=== PATIENT | female | born 1990 | race Two or more races ===

== ENCOUNTER 2021-09-08 18:05 | Emergency (ER) | payer MEDICAID, SELFPAY ==
[2021-09-08 18:17] VITALS: BP 130/86; PULSE 115; RESP 16; TEMP 36.6; O2SAT 98
--- NOTE | 2021-09-08 18:21 | ED_ITS ---
HPI - General Adult General: Chief complaint: General Medical Stated complaint: out of medication Time Seen by Provider: 09/08/21 18:21 History of Present Illness: 30-year-old female comes in today with complaints of depression. Patient has a history of bipolar disorder in which she had been on an injectable form of Abilify for about 1 year. When patient found out she was she had stopped the injections and has been without any medication for the last 26 weeks. Patient reports that she had been doing well up until recently where she has been more tearful and depressed. Patient denied any homicidal or suicidal thoughts. Patient reports crying and headaches as her symptoms. Patient's previous behavioral health case manager was in [place] at [facility]. Patient's SUPERVISOR [employer] at this time is Dr. Frazier who is out of office until the . Patient denies any problems with . Patient reports a history of subclinical thyroid disorder. Patient has in the past been on Zoloft which caused verónica, lithium which can cause increased drowsiness, and Wellbutrin which increased suicidal thoughts. Review of Systems General: Reports: 10 or more systems reviewed and unremarkable except in HPI and below Psych: Reports: depression Physical Exam Const: COMMON NORMALS: alert HENMT: COMMON NORMALS: normocephalic HEAD & SCALP: normocephalic Neck/C-Spine: COMMON NORMALS: full ROM Resp: COMMON NORMALS: normal respiratory effort and clear to auscultation bilaterally AUSCULTATION: clear to auscultation bilaterally Cardio: COMMON NORMALS: regular rate and regular rhythm RATE: regular rate RHYTHM: regular rhythm Extremity: COMMON NORMALS: normal to inspection Neuro: SENSORIUM/ORIENTATION: Yes alert Skin: COMMON NORMALS: no rashes or lesions noted GENERAL SKIN EXAM: no rashes or lesions noted Course ED course: 1844, discussed patient with Dr. Valenzuela, on-call for Dr. Frazier, he feels that Lamictal may be the best choice for the patient at this time to treat her symptoms. He recommended that she follow-up with Dr. Frazier on the . Reviewed this with patient who agreed to plan. Patient was started on Lamictal 25 mg daily. Vital Signs: Vital signs: Vital Signs Temperature 97.8 F 09/08/21 18:17 Pulse Rate 110 H 09/08/21 18:39 Respiratory Rate 16 09/08/21 18:39 Blood Pressure 130/86 09/08/21 18:39 Pulse Oximetry 98 09/08/21 18:39 MDM - General Adult Medical Decision Making 30-year-old female comes in today with increased depression. Patient has a history of bipolar disorder with 1 episode of verónica. Patient is in her 26-week . On exam physically patient appears well. Patient denies any homicidal suicidal thoughts. Vital signs are normal. Differential diagnosis includes but not limited to bipolar disorder, major depressive disorder, worried well. Reviewed exam and patient with Dr. Valenzuela who recommended at this time we start patient on Lamictal 25 mg daily. Patient was given a 25 mg dose of Lamictal in the emergency department. Patient appeared cooperative without any episodes of tearfulness. Reviewed recommendations for follow-up and return as needed to the ER. Patient stated understanding. Discharge Plan Discharge Patient Disposition: Home Clinical Impression: Bipolar 1 disorder, depressed Condition: Stable Prescriptions: New Lamictal 25 mg tablet 25 mg PO DAILY Qty: 30 0RF Discharge Orders: Discharge ED (Routine); Ordered 09/08/21 Ordered By: Jim Bergman Discharge Diet: Usual diet Discharge Activity: Increase activity as tolerated Patient Instructions: Bipolar Disorder (ED) Activity Restrictions/Additional Instructions: Drink plenty of water and fluids with medication. Follow-up with Dr. Frazier in 1 week on the fifth for recheck. Return to ER for new concerns or worsening symptoms. Coding Level of Care Code ED Cooker Operator for Gregg Eid
[2021-09-08 18:39] VITALS: BP 130/86; PULSE 110; RESP 16; O2SAT 98
[2021-09-08] MEDS: lamoTRIgine 25 mg Tablet PO (18:44)
== END 2021-09-08 18:51 | disposition home or self-care (01) ==
PROVIDERS: Emergency Provider Nurse Practitioner Family
DX: F31.9 Bipolar disorder, unspecified (principal)
CPT/HCPCS: 99283

== ENCOUNTER 2021-11-27 16:16 | Inpatient (IN) | payer MEDICAID, SELFPAY ==
[2021-11-27] VITALS (125 sets, daily range): BP systolic 120–188; BP diastolic 74–108; PULSE 61–190; RESP 14–16; TEMP 35.7–37; O2SAT 91–100; BMI 32.7
[2021-11-27 15:27] LABS: Basophils # 0.1 10^3/uL (0.0-0.1); Basophils % 0.7 %; Eosinophils # 0.1 10^3/uL (0.0-0.8); Eosinophils % 0.7 %; Hematocrit 36.4 % (37.0-47.0); Hemoglobin 11.8 g/dL (11.5-15.3); Lymphocytes # 1.2 10^3/uL (0.8-4.8); Lymphocytes % 15.2 %; Mean Corpuscular HGB Conc 32.4 g/dL (30.0-36.0); Mean Corpuscular Hemoglobin 30.4 pg (28.0-34.0); Mean Corpuscular Volume 93.8 fl (81-99); Mean Platelet Volume 12.4 fL (7.4-10.4); Monocytes # 0.6 10^3/uL (0.2-0.9); Monocytes % 7.8 %; Neutrophils # 5.69 10^3/uL (1.8-7.7); Neutrophils % 75.1 %; Nucleated Red Blood Cells % 0 %; Platelet Count 168 10^3/cmm (130-400); Red Blood Count 3.88 10^6/uL (4.1-5.3); Red Cell Distribution Width 12.8 % (12.1-15.1); White Blood Count 7.6 10^3/uL (4.0-10.0)
[2021-11-27 15:37] LABS: Bilirubin Urine Neg (Negative); Blood Urine Neg (Negative); Glucose Urine UA Norm (Normal); Ketones Urine Negative (Negative); Nitrate Urine Negative (Negative); Protein Urine 3+ (Negative); Specific Gravity, Urine 1.005 (1.005-1.030); Urine Appearance Hazy (CLEAR); Urine Color Yellow (Yellow); pH Urine 7 (5-7)
[2021-11-27 15:38] LABS: Add Urine Microscopic? YES; Leukocyte Esterase Urine 2+ (Negative); Urobilinogen Urine Norm (Negative)
[2021-11-27 15:39] LABS: Add Urine Culture? No; Bacteria Urine 2+ /hpf; Mucus Urine 2+ /hpf; Squamous Epithelial Cell Urine 15-25 /hpf (0-5); WBC Urine 15-25 /hpf (0-5)
[2021-11-27 15:51] LABS: Alanine Aminotransferase 12 U/L (0-33); Albumin Level 3.1 g/dL (3.5-5.2); Alkaline Phosphatase 765 U/L (35-105); Anion Gap 14.3 (5-19); Aspartate Amino Transferase 13 U/L (0-32); Blood Urea Nitrogen 7 mg/dL (6-20); Carbon Dioxide 23 mmol/L (22-29); Chloride 102 mmol/L (98-107); Creatinine Clr Calc Pharmacy 162.3475; Globulin 2.8 g/dL (1.3-4.6); Glomerular Filtration Rate 143.9 mL/min (90-130); Glucose 94 mg/dL (65-115); Osmolality Calculated 278 mOsm/kg (285-295); Potassium 4.3 mmol/L (3.5-5.1); Sodium 135 mmol/L (136-145); Total Bilirubin 0.3 mg/dL (0.15-1.2); Total Protein 5.9 g/dL (6.6-8.7); Uric Acid 4.7 mg/dL (2.4-5.7)
[2021-11-27 15:52] LABS: Urine Creatinine 153 mg/dL (28-217)
[2021-11-27 16:04] LABS: UPRO/UCREAT Ratio 1.56 mg/mg CR; Urine Protein Random 238 mg/dL
[2021-11-27] MEDS: magnesium sulfate premix 4 GM/100 ML PREMIX IV (16:30)
[2021-11-27] MEDS: dextrose 5%-lactated ringers 1,000 ML 75 ML IV (16:30)
[2021-11-27] MEDS: magnesium sulfate premix 20 GM/500 ML BAG IV (16:50)
--- NOTE | 2021-11-27 17:07 | PM.OPHPUD ---
Labor & Delivery H&P Update Date of Procedure: November 27, 2021 Date H&P Performed: 11/27/21 Admission Diagnosis: IUP at 37w4d gestation Pre-eclampsia with severe BP Preop diagnosis: Planning of labor analgesia Primary indication for procedure: Preeclampsia Planned procedure: Induction with expectant management of labor and delivery Other information: This is a 31-year-old G5, P3 at 37 weeks 4 days gestation who presented complaining of increased swelling. She had 2+ pitting edema up to her knees. She describes what sound like scotomata yesterday but none today. Her blood pressure was found to be elevated in the severe range 162/89, 188/103 on bedrest. PIH labs were performed and her protein creatinine ratio was 1.56. Decision was made to go ahead and proceed with induction since she is term. She has been started on magnesium and hypertensive protocol.
[2021-11-27] MEDS: lactated ringers 1,000 ML 999 ML IV (17:13)
[2021-11-27] MEDS: ampicillin 2,000 MG in sodium chloride 0.9% (plus) 50 ML 100 MG IV (17:43)
--- NOTE | 2021-11-27 18:25 | ANES.PROC ---
Anesthesia Procedures Procedure/Date: 11/27/21 Epidural: Time Out Performed: Yes Consents Signed: Procedure Consent Consent: requested by attending/covering physician, from patient, risks and benefits reviewed and patient agrees to proceed Lumbar Level: L3-L4 Epidural position: sitting Epidural procedure: sterile prep of area, 1% lidocaine to numb the area, 18 g needle, neg for paresthesia, test dose given (3 cc of 2% lido c 1:200k epi neg), 0.2% Ropivacaine bolus ml (4cc and fent 100 mcg), placed PCEA, no systemic response, sterile dressing applied, L.U.D. no apparent complications and 0.2% Ropiavacaine @ mls/hr (13cc/ hour. LUIS DANIEL at 7 cm. Pt tolerated well)
[2021-11-27] MEDS: oxytocin 30 UNIT/500 ML BAG IV (19:41)
[2021-11-27] MEDS: hyDROXYzine 25 mg Capsule 50 MG PO (20:12)
[2021-11-27] MEDS: ampicillin 1,000 MG in sodium chloride 0.9% (plus) 50 ML 100 MG IV (21:45)
[2021-11-27 23:19] LABS: Magnesium Level (OB Only) 4.7 mg/dL (5.0-7.5)
[2021-11-28] VITALS (55 sets, daily range): BP systolic 105–179; BP diastolic 70–109; PULSE 69–144; RESP 16–17; TEMP 36.9; O2SAT 99
--- NOTE | 2021-11-28 00:05 | P.PCNOB_ITS ---
Delivery Note: Date of delivery: November 28, 2021 Procedure: Precipitous normal vaginal delivery Estimated blood loss (mL): 300 Pre-Delivery Course: She had routine care at [facility]. She transferred care from another facility at approximately 23 weeks gestation. She was blood type A positive antibody negative, hepatitis B surface antigen nonreactive, hepatitis C nonreactive, HIV nonreactive, GC chlamydia negative, positive GBS in the urine, she passed her glucose tolerance test at 134. There were no complications during the . Delivery: This is a 31-year-old G5 now P4 who was diagnosed today with preeclampsia with severe blood pressures. She was started on magnesium and artificial rupture of membranes with clear fluid was performed. About 2 hours after rupture she was not shruthi regularly so she was started on high-dose Pitocin. She received an epidural for pain management. At 2333 I was notified by nursing that the was already born and on the mother's chest. When I arrived the placenta had just delivered spontaneously. There were no vaginal lacerations. The was at the warmer receiving some oxygen so diverted my attention to him. His weight was 2310 g, 5 pounds 1 ounce. Coding Level of Care Code Acute Jewel Bearing Maker for Gregg Eid
--- NOTE | 2021-11-28 01:14 | PC.NURSE ---
notification of MD delayed due to precipitous of .
--- NOTE | 2021-11-28 01:47 | PC.NURSE ---
11/27/21 2143: Performed cervical exam on patient with SANDRA; patient was 4 cm, 85% effaced, -2 station. 2257: Performed cervical exam on patient; patient was 5 cm, 85% effaced, -1 station. Patient reports little pressure with contractions. This nurse stated for patient to report if patient feels an increase in pressure. 2259: Patient turned to right lateral with leg in stirrup. 2310: This nurse back in room to adjust monitor. 2314: WESGELY to room to locate FHT on monitor. FHT intermittent. 2321: BUNHA to room to locate FHT on monitor. FHT intermittent. 2325: Removed covers, visualized perineum, and patient turned to left lateral due to FHT in 90's. FHT intermittent. 2333: Patient turned to left tilt. 2334: Unable to find FHT; patient rolled to back for SVE by SANDRA. Infant found to be between legs at this time. then placed on mother's chest. SANDRA requested Dr. Frazier and additional assistance. 2334: GOPI called Dr. Frazier to hospital. MERRITT and GOPI back to room. 2335: Used delee on infant and suctioned 4 mL of thin, frothy mucous. Pulse ox placed on infant. 2350: Placenta left attached to until placenta spontaneously delivered. Cord clamped and cut. placed in warmer. CPAP started at 21%. Baby's O2 at 90%-91% with retractions. 2351: Patient stated to GOPI I thought I felt something, but I wasn't sure, so I didn't want to say anything. 2352: MD in room, assessed patient and , and removed CPAP from infant. SpO2 96% on room air on infant. 11/28/21 0010: placed skin to skin with mother on continuous pulse ox, infant latched to breastfeed.
[2021-11-28] MEDS: magnesium sulfate premix 20 GM/500 ML BAG IV ×2 (02:50→12:12)
[2021-11-28 05:35] LABS: Magnesium Level (OB Only) 5.4 mg/dL (5.0-7.5)
[2021-11-28] MEDS: docusate sodium 100 mg Capsule PO ×2 (11:18→17:24)
[2021-11-28] MEDS: ibuprofen 800 mg tablet PO ×2 (11:18→17:24)
[2021-11-28] MEDS: prenatal vitamin Capsule 1 CAP PO (11:18)
[2021-11-28 12:37] LABS: Magnesium Level (OB Only) 6.3 mg/dL (5.0-7.5)
[2021-11-28] MEDS: dextrose 5%-lactated ringers 1,000 ML 125 ML IV ×2 (14:38→19:15)
--- NOTE | 2021-11-28 15:04 | ANE.PACU2 ---
Inpatient post-anesthesia follow up: Airway intact: Yes Vital signs: Temperature 98.6 F Pulse Rate 91 Respiratory Rate 17 Blood Pressure 148/95 Pulse Oximetry 99 Oxygen Delivery Me thod Room Air Oxygen Flow Rate Fraction of Inspir ed Oxygen Hydration adequate: Yes Nausea and vomiting: No Pain level: 1 Mental status: Baseline
[2021-11-28] MEDS: miSOPROStol 200 mcg Tablet 800 MCG PR ×2 (15:45→19:47)
[2021-11-28] MEDS: lactated ringers 1,000 ML 999 ML IV (15:59)
[2021-11-28 16:20] LABS: Hematocrit 28.6 % (37.0-47.0); Hemoglobin 9.5 g/dL (11.5-15.3); Mean Corpuscular HGB Conc 33.2 g/dL (30.0-36.0); Mean Corpuscular Hemoglobin 30.9 pg (28.0-34.0); Mean Corpuscular Volume 93.2 fl (81-99); Mean Platelet Volume 12.6 fL (7.4-10.4); Platelet Count 201 10^3/cmm (130-400); Red Blood Count 3.07 10^6/uL (4.1-5.3); Red Cell Distribution Width 13.1 % (12.1-15.1); White Blood Count 12.2 10^3/uL (4.0-10.0)
--- NOTE | 2021-11-28 16:59 | P.PN_ITS ---
Subjective Subjective: I was notified by nursing that the patient had a hemorrhage. She was up in the nursery feeding baby at the time. Her uterus was atonic. She was given 800 mcg of Cytotec rectally. She was also started on Transexemic acid. She also responded to fundal massage. She has had excellent urine output and is requesting food. Vitals/I&O/Wt Last Vital Signs Temp 98.6 F 11/27/21 18:46 Pulse 91 11/28/21 12:05 Resp 17 11/28/21 12:05 BP 148/95 11/28/21 12:05 Pulse Ox 99 11/28/21 09:15 O2 Del Method 11/28/21 12:05 11/28/21 11/28/21 11/28/21 06:59 14:59 22:59 Intake Total 546.517 / 621.500 468.333 / 468.333 Output Total 1274 2750 / 2750 Balance -728.483 / -1396.500 -2281.667 / -2281.667 Weight last 48 hrs Weight 82.554 kg Physical Exam Narrative: Alert and oriented, lips are pale, heart regular rate and rhythm, lungs clear to auscultation bilaterally, abdomen is soft and nontender fundus is firm and U- 3, extremities have some edema but no calf tenderness Urinary Catheter Management: Willard: Cath Placed During This Visit: yes Reason for Continuing Indwelling Catheter: Accurate Measurement of Urinary Output in Critically Ill Patients Urinary Catheter Date of Insertion: 11/27/21 Urinary Catheter Time of Insertion: 16:40 Data : 11/28/21 15:58 11/27/21 15:08 A&P Assessment and plan (1) hemorrhage, delivered: She responded well to the Cytotec and transexemic acid. We are going to add 20 units of Pitocin to her IV fluids. We are also going to have her take 600 mcg of Cytotec by mouth. Hopefully this will keep her uterus clamped down. She has lost a significant amount of blood estimated to be at least 1 L by weight. We will have blood type and crossed just in case. Status: Acute (2) Pre-eclampsia affecting childbirth: She has had excellent urine output. With her atonic uterus and bleeding issues I am going to go ahead and stop the magnesium. We will continue to monitor her urine output. Status: Acute (3) Normal spontaneous vaginal delivery: Continue routine care Status: Acute Attestations Medical Necessity Statement*: Routine care and preeclampsia care Coding Level of Care Code Acute Sales Order Specialist for Chg Fwd Diagnoses hemorrhage, delivered O72.1 Pre-eclampsia affecting childbirth O14.94 Normal spontaneous vaginal delivery O80
[2021-11-28] MEDS: oxytocin 10 unit/mL SDV 1 mL 20 UNIT IV (17:17)
[2021-11-28] MEDS: miSOPROStol 200 mcg Tablet 600 MCG PO (17:23)
[2021-11-28 21:07] LABS: Basophils % 0.3 %; Eosinophils % 0.1 %; Hematocrit 24.2 % (37.0-47.0); Hemoglobin 8.1 g/dL (11.5-15.3); Lymphocytes # 1.3 10^3/uL (0.8-4.8); Lymphocytes % 8.9 %; Mean Corpuscular HGB Conc 33.5 g/dL (30.0-36.0); Mean Corpuscular Hemoglobin 31.6 pg (28.0-34.0); Mean Corpuscular Volume 94.5 fl (81-99); Mean Platelet Volume 12.2 fL (7.4-10.4); Monocytes # 0.5 10^3/uL (0.2-0.9); Monocytes % 3.7 %; Neutrophils # 12.42 10^3/uL (1.8-7.7); Neutrophils % 86.4 %; Nucleated Red Blood Cells % 0 %; Platelet Count 210 10^3/cmm (130-400); Red Blood Count 2.56 10^6/uL (4.1-5.3); Red Cell Distribution Width 13.2 % (12.1-15.1); White Blood Count 14.4 10^3/uL (4.0-10.0)
[2021-11-29] MEDS: ibuprofen 800 mg tablet PO ×3 (01:48→15:46)
[2021-11-29 03:26] VITALS: BP 127/78; PULSE 92
[2021-11-29] MEDS: prenatal vitamin Capsule 1 CAP PO (09:17)
[2021-11-29] MEDS: docusate sodium 100 mg Capsule PO (09:17)
[2021-11-29 09:27] VITALS: BP 149/93; PULSE 106; RESP 16; TEMP 36.6
--- NOTE | 2021-11-29 17:29 | PM.PN ---
Subjective Subjective: She has been doing well. Her bleeding has been average to light. Vitals/I&O/Wt Last Vital Signs Temp 97.8 F 11/29/21 09:27 Pulse 106 H 11/29/21 09:27 Resp 16 11/29/21 09:27 BP 149/93 11/29/21 09:27 Pulse Ox 99 11/28/21 09:15 O2 Del Method 11/29/21 09:27 11/29/21 11/29/21 11/29/21 06:59 14:59 22:59 Intake Total 900 / 3102.500 1160 / 1160 Output Total 400 / 5115 1400 / 1400 Balance 500 / -2012.500 -240 / -240 Physical Exam Narrative: Alert and oriented, sitting up in bed eating dinner, heart regular rate and rhythm, lungs clear to auscultation bilaterally, abdomen is soft and nontender, fundus is firm, extremities have 2+ edema but no calf tenderness. Urinary Catheter Management: Willard: Cath Placed During This Visit: yes, but has since been removed by the nurse Reason for Continuing Indwelling Catheter: Accurate Measurement of Urinary Output in Critically Ill Patients Urinary Catheter Date of Insertion: 11/27/21 Urinary Catheter Time of Insertion: 16:40 Date Urinary Catheter Removed: 11/28/21 Time Urinary Catheter Discontinued: 22:00 Data : 11/28/21 20:45 11/27/21 15:08 A&P Assessment and plan (1) Pre-eclampsia affecting childbirth: She has been off the magnesium now for 24 hours and has been diuresing well. Her blood pressures have been normal to only mildly elevated 149/93 Status: Acute (2) hemorrhage, delivered: Hemoglobin is 8.1. She is asymptomatic. She has been getting up without any dizziness Status: Acute (3) Normal spontaneous vaginal delivery: Routine care. If everything is going well likely discharge home tomorrow Status: Acute Attestations Medical Necessity Statement*: Normal spontaneous vaginal delivery with hemorrhage Coding Level of Care Code Acute Slide Fastener Chain Assembler for Chg Fwd Diagnoses Pre-eclampsia affecting childbirth O14.94 hemorrhage, delivered O72.1 Normal spontaneous vaginal delivery O80
[2021-11-29 22:40] VITALS: BP 136/88; PULSE 102; RESP 16; TEMP 36.6; O2SAT 99
[2021-11-30] MEDS: ibuprofen 800 mg tablet PO ×2 (01:37→11:19)
[2021-11-30 04:00] VITALS: BP 138/76; PULSE 108; RESP 16; TEMP 36.6; O2SAT 99
[2021-11-30] MEDS: prenatal vitamin Capsule 1 CAP PO (11:19)
[2021-11-30] MEDS: docusate sodium 100 mg Capsule PO (11:20)
[2021-11-30 11:30] VITALS: BP 152/95; PULSE 107; RESP 16; TEMP 36.5
--- NOTE | 2021-11-30 13:08 | P.DS_ITS ---
Discharge Providers Date of Admission: 11/27/21 16:16 Date of Discharge: November 30, 2021 Attending Provider at Admission: Soah Frazier MD Attending Provider at Discharge: Soha Frazier MD Diagnoses at Discharge Discharge Diagnosis (1) Pre-eclampsia affecting childbirth: Status: Acute (2) hemorrhage, delivered: Status: Acute (3) Normal spontaneous vaginal delivery: Status: Acute Reason for Visit Reason for Visit: swelling in feet Hospital Course Hospital Course This is a 31-year-old G5 now P4 who was admitted for induction secondary to preeclampsia. She was placed on magnesium. She had a normal spontaneous vaginal delivery of a viable male infant. Mother did well initially. At 17 hours she had a hemorrhage and required Cytotec and transexemic acid. Her bleeding has been average to light since then. She is ambulating, tolerating a regular diet, and has had great urine output off of the magnesium. Her blood pressures at times are mildly elevated 152/95 has been the highest. I will hold off on antihypertensive for now and see patient close follow-up in the clinic. Physical Exam Narrative: Sitting up in bed breast-feeding, alert and oriented, regular rate and rhythm, lungs clear to auscultation bilaterally, abdomen is soft and nontender with fundus firm, extremities do have some edema but no calf tenderness. Urinary Catheter Management: Willard: Cath Placed During This Visit: yes, but has since been removed by the nurse Reason for Continuing Indwelling Catheter: Accurate Measurement of Urinary Output in Critically Ill Patients Urinary Catheter Date of Insertion: 11/27/21 Urinary Catheter Time of Insertion: 16:40 Date Urinary Catheter Removed: 11/28/21 Time Urinary Catheter Discontinued: 22:00 Discharge Data Studies Completed and Pending Pending at discharge Category Date Time Status Leukocyte Reduced RBC Routine Lab 11/27/21 15:15 Results Type and Screen Routine Lab 11/28/21 17:14 Results Laboratory Results WBC 14.4 10^3/uL (4.0-10.0) H 11/28/21 20:45 RBC 2.56 10^6/uL (4.1-5.3) L 11/28/21 20:45 Hgb 8.1 g/dL (11.5-15.3) L 11/28/21 20:45 Hct 24.2 % (37.0-47.0) L 11/28/21 20:45 MCV 94.5 fl (81-99) 11/28/21 20:45 MCH 31.6 pg (28.0-34.0) 11/28/21 20:45 MCHC 33.5 g/dL (30.0-36.0) 11/28/21 20:45 RDW 13.2 % (12.1-15.1) 11/28/21 20:45 Plt Count 210 10^3/cmm (130-400) 11/28/21 20:45 MPV 12.2 fL (7.4-10.4) H 11/28/21 20:45 Neut % (Auto) 86.4 % 11/28/21 20:45 Lymph % (Auto) 8.9 % 11/28/21 20:45 Ritchie % (Auto) 3.7 % 11/28/21 20:45 Eos % (Auto) 0.1 % 11/28/21 20:45 Baso % (Auto) 0.3 % 11/28/21 20:45 Neut # (Auto) 12.42 10^3/uL (1.8-7.7) H 11/28/21 20:45 Lymph # (Auto) 1.3 10^3/uL (0.8-4.8) 11/28/21 20:45 Ritchie # (Auto) 0.5 10^3/uL (0.2-0.9) 11/28/21 20:45 Eos # (Auto) 0.0 10^3/uL (0.0-0.8) 11/28/21 20:45 Baso # (Auto) 0.0 10^3/uL (0.0-0.1) 11/28/21 20:45 Nucleated RBC % (auto) 0 % 11/28/21 20:45 Nucleated RBCs # 0.0 /100WBC 11/28/21 20:45 Sodium 135 mmol/L (136-145) L 11/27/21 15:08 Potassium 4.3 mmol/L (3.5-5.1) 11/27/21 15:08 Chloride 102 mmol/L (98-107) 11/27/21 15:08 Carbon Dioxide 23 mmol/L (22-29) 11/27/21 15:08 Anion Gap 14.3 (5-19) 11/27/21 15:08 BUN 7 mg/dL (6-20) 11/27/21 15:08 Creatinine 0.5 mg/dL (0.5-0.9) 11/27/21 15:08 GFR Calculation 143.9 mL/min (90-130) H 11/27/21 15:08 Glucose 94 mg/dL (65-115) 11/27/21 15:08 Calculated Osmolality 278 mOsm/kg (285-295) L 11/27/21 15:08 Uric Acid 4.7 mg/dL (2.4-5.7) 11/27/21 15:08 Calcium 9.0 mg/dL (8.5-10.5) 11/27/21 15:08 Magnesium 6.3 mg/dL (5.0-7.5) 11/28/21 11:40 Total Bilirubin 0.3 mg/dL (0.15-1.2) 11/27/21 15:08 AST 13 U/L (0-32) 11/27/21 15:08 ALT 12 U/L (0-33) 11/27/21 15:08 Alkaline Phosphatase 765 U/L (35-105) H 11/27/21 15:08 Total Protein 5.9 g/dL (6.6-8.7) L 11/27/21 15:08 Albumin 3.1 g/dL (3.5-5.2) L 11/27/21 15:08 Globulin 2.8 g/dL (1.3-4.6) 11/27/21 15:08 Urine Color Yellow (Yellow) 11/27/21 15:00 Urine Appearance Hazy (CLEAR) A 11/27/21 15:00 Urine pH 7 (5-7) 11/27/21 15:00 Ur Specific Escalante 1.005 (1.005-1.030) 11/27/21 15:00 Urine Protein 3+ (Negative) H 11/27/21 15:00 Urine Glucose (UA) Norm (Normal) 11/27/21 15:00 Urine Ketones Negative (Negative) 11/27/21 15:00 Urine Blood Neg (Negative) 11/27/21 15:00 Urine Nitrate Negative (Negative) 11/27/21 15:00 Urine Bilirubin Neg (Negative) 11/27/21 15:00 Urine Urobilinogen Norm mg/dL (Negative) 11/27/21 15:00 Ur Leukocyte Esterase 2+ (Negative) H 11/27/21 15:00 Urine RBC None /hpf (0-2) 11/27/21 15:00 Urine WBC 15-25 /hpf (0-5) H 11/27/21 15:00 Ur Squamous Epith Cells 15-25 /hpf (0-5) H 11/27/21 15:00 Amorphous Sediment Not Reportable 11/27/21 15:00 Urine Bacteria 2+ /hpf (NONE) H 11/27/21 15:00 Urine Mucus 2+ /hpf 11/27/21 15:00 U Random Total Protein 238 mg/dL 11/27/21 15:00 Urine Creatinine 153 mg/dL (28-217) 11/27/21 15:00 Protein/Creatinin Ratio 1.56 mg/mg CR 11/27/21 15:00 Blood Type A Positive 11/27/21 15:15 Rho(D) Type Positive 11/27/21 15:15 Antibody Screen Negative 11/27/21 15:15 Crossmatch See Detail 11/27/21 15:15 Vitals Last Vital Signs Temp 97.7 F 11/30/21 11:30 Pulse 107 H 11/30/21 11:30 Resp 16 11/30/21 11:30 BP 152/95 11/30/21 11:30 Pulse Ox 99 11/30/21 04:00 O2 Del Method 11/30/21 11:30 Discharge Plan Discharge Patient Disposition: Home Prescriptions: Continued lamotrigine [Lamictal] 25 mg tablet 25 mg PO DAILY Qty: 30 0RF Vitamin Discharge Orders: Discharge Order (Routine); Ordered 11/30/21 Ordered By: Soha Frazier Referrals: Soha Frazier MD [Physician] - 1 week Discharge Diet: Usual diet Discharge Activity: Limit activity as instructed Patient Instructions: Depression (DC), Bleeding (DC), Preeclampsia and Eclampsia After Delivery (GEN), Hemorrhage (DC), OB Discharge Report, OB Food/Drug Interaction Guide, OB Care at Home, Opioid Safety, OB Home Care, OB Vaginal Deliveries Activity Restrictions/Additional Instructions: Take OTC iron supplement daily. Discharge Attestations Time Spent in Discharge Care*: less than 30 min Quality Metrics Clinical Quality Measures [ No reported AMI, CVA or VTE this stay] Coding Level of Care Code Acute Chg FW DC note Diagnoses Pre-eclampsia affecting childbirth O14.94 hemorrhage, delivered O72.1 Normal spontaneous vaginal delivery O80
[2021-11-30 15:35] VITALS: BP 149/91; PULSE 103; RESP 16; TEMP 36.5
== END 2021-11-30 16:15 | disposition home or self-care (01) | DRG 807 ==
LOC: OPOB 11-28 10:57 → OBGYN 11-28 10:58
PROVIDERS: Admitting Provider Family Medicine; Visit Provider Family Medicine
DX: O14.14 Severe pre-eclampsia complicating childbirth (principal); Z37.0 Single live birth; Z3A.37 37 weeks gestation of pregnancy; O99.824 Streptococcus B carrier state complicating childbirth; O62.3 Precipitate labor; O72.2 Delayed and secondary postpartum hemorrhage
CPT/HCPCS: 36415; 51702; 59025; 59409; 80053; 81001; 82570; 83735; 84156; 84550; 85025; 85027; 86850; 86900; 86920; 99211; J0290; J2795; J3010; J3475

== ENCOUNTER → 2023-04-13 08:08 | Outpatient (BNVA) | payer MEDICAID, SELFPAY | PROVIDERS: PCP Family Medicine; Visit Provider Physician Assistant | DX: M79.641 Pain in right hand (principal); M79.642 Pain in left hand; M65.4 Radial styloid tenosynovitis [de Quervain] | CPT/HCPCS: 73130 ==

== ENCOUNTER 2023-07-18 06:14 | Outpatient (CLI) | payer MEDICAID, SELFPAY ==
--- NOTE | 2023-07-18 06:26 | US_ITS ---
WS: [id number] Complete ABDOMINAL ULTRASOUND HISTORY: ABD PAIN COMPARISON: None available. Liver: 13.3 cm in length. Normal size liver and echogenicity. No bile duct dilatation or mass. Portal Vein: Normal hepatopetal flow with monophasic waveform. Gallbladder: Well-distended. There is a single nonshadowing polyp measuring 3 mm. No stones. CBD: 0.3 cm Pancreas: Not well visualized. Right kidney: 9.0 cm x 4.9 x 4.4 cm. Cortex: 1.2 cm. Normal size and echogenicity. No hydronephrosis or mass. Left kidney: 10.0 cm x 4.7 cm x 4.3 cm. Cortex: 1.2 cm. Normal size and echogenicity. No hydronephrosis or mass. Spleen: 8.7 cm. Normal size and echogenicity. Aorta and IVC: Unremarkable abdominal aorta and IVC. US/US abdomen complete* [id number] Impression: 1. No cholelithiasis. 2. Hyperplastic very small gallbladder polyp. 3. No renal obstruction. 4. Nonvisualization of the pancreas.
--- NOTE | 2023-07-18 08:14 | US_ITS ---
WS: [id number] US pelv w/transvag [id number] HISTORY: PELVIC PAIN COMPARISON: None available. Uterus: 8.1 cm x 6.2 cm x 4.5 cm. Normal size anteverted uterus. No fibroid or mass. Endometrium: 1.1 cm. Normal homogeneous endometrium. No mass or increased vascularity. Normal junctio nal zone. Right ovary: 3.0 cm x 3.0 cm x 1.4 cm. Normal size and vascularity, no cystic or solid masses. Left ovary: 2.9 cm x 1.6 cm x 3.2 cm. Normal size and vascularity, no cystic or solid masses. No free fluid in the cul-de-sac. US/US pelv w/transvag [id number] IMPRESSION: Normal transabdominal and transvaginal pelvic ultrasounds.
== END 2023-07-18 06:15 | disposition home or self-care (01) ==
PROVIDERS: PCP Family Medicine; Visit Provider Nurse Practitioner Family
DX: R10.9 Unspecified abdominal pain (principal); R10.2 Pelvic and perineal pain; K82.4 Cholesterolosis of gallbladder
CPT/HCPCS: 76700; 76830; 76856

== ENCOUNTER 2023-08-22 11:01 | Day surgery (SDC) | payer MEDICAID, SELFPAY ==
[2023-08-22] VITALS (7 sets, daily range): BP systolic 96–131; BP diastolic 16–89; PULSE 63–79; RESP 12–18; TEMP 36.4; O2SAT 98–100; BMI 27.4
[2023-08-22] MEDS: acetaminophen 1,000 MG/100 ML PIGGYBACK 400 MG IV (11:40)
[2023-08-22] MEDS: sodium chloride 0.9% 1,000 ML 30 ML IV (11:40)
[2023-08-22] MEDS: scopolamine 1.5 Patch 1 PATCH TRANSDERMA (11:40)
[2023-08-22] MEDS: ketorolac 30 mg/mL INJ IVP (11:40)
--- NOTE | 2023-08-22 11:44 | ANES.PREANE2 ---
Pre-Anesthetic Assessment Height/Weight: Height 1.57 m Weight 68.039 kg BP O2 Del Method 131/89 Room Air 08/22/23 11:23 08/22/23 11:23 Operation Date: 08/22/23 12:30 Proposed Procedures p Dequervain Release(Left) - Jorge Martinez, Familial anesthetic complications: none Was Beta Nadine taken within 24 hours: N/A Was Clonidine taken within 24 hours: N/A Last intake: Intake Last Liquid Date 08/21/23 Last Liquid Time 21:00 Last Solid Date 08/21/23 Last Solid Time 21:00 Social No alcohol and No tobacco (h/o smoking) Exam alert, oriented x 3, clear to auscultation bilaterally and regular rate & rhythm Airway Submandibular: within normal limits Cervical ROM: within normal limits Mallampati: Class II Dentition: full History/ROS No significant history except as noted Neuropsych Bipolar Anesthetic Plan ASA status: 2 Anesthesia: Choice Medications/Allergies Home Medications Medication Instructions Recorded Confirmed Last Taken Type bupropion HCl 300 mg 24 hr tablet, 300 mg PO QAM #30 tabs 07/26/23 08/22/23 08/22/23 Rx extended release (Wellbutrin XL) lamotrigine 100 mg tablet 100 mg PO BID #60 tabs 07/26/23 08/22/23 08/22/23 Rx (Lamictal) ondansetron 4 mg disintegrating 4 mg PO Q8H PRN nausea and 08/22/23 Unknown Rx tablet vomiting 3 days #9 tabs tramadol 50 mg tablet 50 mg PO Q6H PRN pain #20 tabs 08/22/23 Unknown Rx Allergies Allergy/AdvReac Type Severity Reaction Status Date / Time No Known Allergies Allergy Verified 07/26/23 14:53 Current Medications Generic Name Dose Route Start Last Admin Trade Name Freq PRN Reason Stop Dose Admin Sodium Chloride 1,000 mls @ 30 mls/hr 08/22/23 11:30 08/22/23 11:40 Sodium Chloride 0.9% IV 08/23/23 11:29 30 mls/hr .Q24H AIMEE Administration PFSH Anesthesia Medical History Psychiatric care Social History Smoking and tobacco/nicotine status: former use of tobacco/nicotine Quit status (tobacco/nicotine): has quit using Year quit tobacco: 2020 Second hand smoke exposure: No Alcohol intake: former Substance/Drug Use: former Female Reproductive History Date of last menstrual period: 07/23/23 Data Anesthesia Cardiac Studies: No Data to Display
[2023-08-22 11:52] LABS: OR HCG Qualitative Urine Negative (Negative)
--- NOTE | 2023-08-22 12:18 | P.HP_ITS ---
Same Day Surgery H&P Indication for Procedure/HPI DATE OF PROCEDURE: August 22, 2023 CHIEF COMPLAINT/INDICATIONFOR SURGICAL PROCEDURE: Left wrist de Quervain's disease PREOP DIAGNOSIS: Left wrist de Quervain's disease PLANNED PROCEDURE: Operation Date: 08/22/23 12:30 Proposed Procedures p Dequervain Release(Left) - Jorge Martinez DO Medications/Allergies* Allergies/Adverse Reactions Allergy/AdvReac Type Severity Reaction Status Date / Time No Known Allergies Allergy Verified 07/26/23 14:53 Current Medications: Generic Name Dose Route Start Last Admin Trade Name Freq PRN Reason Stop Dose Admin Sodium Chloride 1,000 mls @ 30 mls/hr 08/22/23 11:30 08/22/23 11:40 Sodium Chloride 0.9% IV 08/23/23 11:29 30 mls/hr .Q24H AIMEE Administration Pertinent History/Comorbid Conditions* Medical History (Updated 04/13/23 @ 08:50 by RENNY Correa) Psychiatric care Social History Smoking and tobacco/nicotine status: former use of tobacco/nicotine Quit status (tobacco/nicotine): has quit using Year quit tobacco: 2019 Second hand smoke exposure: No Alcohol intake: former Substance/Drug Use: former Pertinent Exam Findings alert, oriented x 3, operative site marked and procedure specific exam findings Please refer to detailed orthopedic examination on 07/17/2023 Bilateral hands-negative Phalen's and negative Tinel's test. Positive Jojo's test. Tenderness noticed over base of thumb. Full range of motion in fingers with normal service line layer strength. Patient does have some tenderness at A1 angelita but no mechanical locking. Fingers are warm and well-perfused. Normal wrist range of motion. Recommendations Surgery/Procedure today Other Plans: Plan to proceed with left wrist de Quervain's release today. She understands and ins and outs procedure risk benefits complication alternatives of surgery as well as the postoperative course and understanding this she elects to proceed with surgery today all questions answered at this time. Coding Level of Care Code Acute Code for Gregg Fwapril
[2023-08-22] MEDS: ceFAZolin 2,000 MG in sodium chloride 0.9% (plus) 50 ML 100 MG IV (12:36)
[2023-08-22] MEDS: lidocaine 2% INJ 20 mL 5 ML INJECTION (13:02)
[2023-08-22] MEDS: BUPivacaine 0.5% INJ 10 mL 5 ML INJECTION (13:02)
--- NOTE | 2023-08-22 13:20 | PM.OP ---
Operative Report Date of procedure: August 22, 2023 Surgeon: Jorge Martinez DO Occupational Health Nursing Director: Carlos Martinez PA-C: PA was necessary for assistance in this case with hand positioning to execute the procedure, retraction and protection of neurovascular structures as well as to assist with wound closure and dressing application. Brief History: ? Procedure: Preoperative diagnosis: Left wrist de Quervain's disease Post-op diagnosis: Same Procedure done: 1. Left wrist de Quervain's release Surgeon: Jorge Martinez DO Anesthesia: MAC (Local) Estimated blood loss: [2mL Tourniquet time [12]minutes IV fluids: See anesthesia record Complications: None Findings: See operative report narrative Condition: stable Disposition: same day Brief History: Patient is a pleasant [32]year-old [female]?with left wrist de Quervain's disease.? Patient has been worked up in the outpatient setting findings and physical examination consistent with this.? We detailed?out?patient's risk benefits complication alternatives with surgical and?nonsurgical treatment options. Through shared decision making, patient?agrees to proceed with surgical intervention of the left wrist de Quervain's release .? Patient understands and agrees with current plan.? All questions answered.? Patient elects to proceed with surgical intervention. Procedure: Patient seen and evaluated in the preoperative holding area.? Consent was reviewed and signed with patient.? Correct extremity was marked.? Patient was seen evaluated by the anesthesia department once cleared for surgery was brought back to the operative suite.? Patient was kept on [facility] in supine position all bony prominences were well-padded patient properly secured to the bed.? Left upper extremity was then placed onto an armboard.? A nonsterile tourniquet was applied to the left upper arm.? Patient underwent anesthesia per the anesthesia department.? Patient's left upper extremity was then prepped and draped in standard orthopedic fashion.? Final timeout performed.? Patient received appropriate preoperative antibiotics. Under sterile aseptic technique patient received local anesthesia over the preplanned de Quervain's release incision site. Esmarch was used to exsanguinate the left upper extremity and tourniquet was insufflated to 250 mmHg. I then proceeded with the left wrist de Quervain's release.? I marked out the first dorsal compartment a small longitudinal incision was made directly over this.? Sharp scalpel incision was made through skin only switch to Littler dissection scissors and protected the superficial branch of the radial nerve as well as neurovascular structures.? I then had direct visualization of the first dorsal compartment sharp scalpel incision I used to then simply incise the first dorsal compartment I switched dissection scissors to release this both proximally and distally to its entirety the EPB tendon did have a subsheath which was subsequently released as well.? I then subsequently used a rag nail and mobilized each tendon that verify no areas of entrapment and this completed the left wrist de Quervain's release. Wound was then thoroughly irrigated.? Tourniquet deflated.? Hemostasis satisfactory with bipolar electrocautery.? I then closed the incision with interrupted nylon stitches.? Xeroform 4 x 4's and a bulky soft dressing was applied to the left upper extremity.? Patient was then awakened from anesthesia and taken to PACU in stable condition.? Patient tolerated procedure without complications. Disposition: Patient taken to PACU in stable condition recovering well.? Dressing clean dry and intact.? Patient will receive appropriate discharge instructions as well as pain medication postoperatively.? Patient to follow-up with me in the office in 2 weeks.? They understand they may be weightbearing as tolerated to the left hand.? Patient should keep incision clean dry and intact.? Patient understands if any questions or concerns may contact the office.
--- NOTE | 2023-08-22 13:28 | P.BOP_ITS ---
Date of Procedure: [August 22, 2023] Surgeon: [Dr. Martinez DO] [employer] Manager(s): [Carlos Martinez PA-C] Procedure(s) performed: [Left wrist de Quervain's release] Findings of the procedure(s): [Left wrist de Quervain's disease] Estimated blood loss: [5 mL] Specimen(s) removed: [N/A] Post-operative diagnosis: [Left wrist de Quervain's disease]
--- NOTE | 2023-08-22 13:29 | PM.PACU ---
PACU note Narrative: Patient is a 30-year-old female just underwent a left wrist de Quervain's release. Patient transferred to PACU in stable condition. Pain is well controlled. Dressing on hand is dry and in place. Patient's fingers are warm and well-perfused. Patient can wiggle fingers. normal cap refill under 2 seconds. Patient has normal elbow range of motion. Unable to assess sensation due to residual localized anesthetic. Exam: awake Disposition: discharged
[2023-08-22] MEDS: ondansetron 2 mg/ML SDV 2 mL 4 MG IVP (14:03)
--- NOTE | 2023-08-22 15:47 | ANE.PACU2 ---
Inpatient post-anesthesia follow up: Airway intact: Yes Vital signs: Temperature 97.6 F Pulse Rate 66 Respiratory Rate 18 Blood Pressure 123/76 Pulse Oximetry 100 Oxygen Delivery Me thod Room Air Oxygen Flow Rate Fraction of Inspir ed Oxygen Hydration adequate: Yes Nausea and vomiting: No Pain level: 2 Mental status: Baseline
== END 2023-08-22 14:29 | disposition home or self-care (01) ==
PROVIDERS: Anesthesiology; PCP Family Medicine; Visit Provider Student in an Organized Health Care Education/Training Program
PROC: (CPT 25000; principal; 2023-08-22 12:20)
DX: M65.4 Radial styloid tenosynovitis [de Quervain] (principal); Z87.891 Personal history of nicotine dependence
CPT/HCPCS: 25000; 81025; J0131; J0690; J1885; J2250; J2405; J2704; J3010; J3490; J7030

== ENCOUNTER 2024-01-04 16:55 | Inpatient (IN) | payer MEDICAID, SELFPAY ==
[2024-01-04 16:56] VITALS: BP 149/104; PULSE 97; RESP 16; TEMP 36.7; O2SAT 97
--- NOTE | 2024-01-04 17:01 | ED.C_ITS ---
HPI - Psych General: Chief Complaint: Psychiatric Symptoms Stated Complaint: MHE Time Seen by Provider: 01/04/24 16:56 Source: patient and EMS Mode of arrival: EMS Limitations: no limitations History of Present Illness: 33-year-old female who states she has a history of bipolar disorder she states she stopped taking her Wellbutrin a little over a month ago and stopped her Lamictal 3 months ago she states she has been feeling increasingly manic she states she has been having racing thoughts. Patient denies SI or HI. Patient states she voluntary want to be admitted to get help and she is concerned she is manic at this time Associated symptoms: Deny depression Related Data Previous Rx's Medication Instructions Recorded tramadol 50 mg tablet 50 mg PO Q6H PRN pain #20 tabs 08/22/23 bupropion HCl 300 mg 24 hr tablet, 300 mg PO QAM #30 tabs 10/25/23 extended release (Wellbutrin XL) hydroxyzine HCl 50 mg tablet 100 mg (2 x 50 mg) PO .HS PRN 10/25/23 anxiety #60 tabs Allergies Allergy/AdvReac Type Severity Reaction Status Date / Time No Known Allergies Allergy Verified 10/25/23 14:58 Review of Systems Const: Denies: fever(s), chills, body aches or change in appetite ENMT: Denies: throat pain or dental pain Card: Denies: chest pain Resp: Denies: dyspnea GI: Denies: abdominal pain, nausea, vomiting or diarrhea Musc: Denies: neck pain or back pain Skin/Breast: Denies: rash Neuro: Denies: headache(s) Psych: Reports: anxiety; Denies: depression PFS ED PFSH: Medical History Psychiatric care Social History Smoking and tobacco/nicotine status: former use of tobacco/nicotine Quit status (tobacco/nicotine): has quit using Year quit tobacco: 2020 Second hand smoke exposure: No Alcohol intake: former Substance/Drug Use: former Physical Exam Const: COMMON NORMALS: patient oriented x3 HENMT: COMMON NORMALS: normocephalic and atraumatic HEAD & SCALP: normocephalic and atraumatic Eye: COMMON NORMALS: Equal, round and reactive pupils present and EOMs intact bilaterally PUPIL: Yes Equal, round and reactive pupils present Neck/C-Spine: COMMON NORMALS: full ROM and supple Chest: COMMONS NORMALS: normal inspection of the chest Resp: COMMON NORMALS: normal respiratory effort Cardio: COMMON NORMALS: regular rate, regular rhythm and No murmurs present (Cardio) RATE: regular rate RHYTHM: regular rhythm Extremity: COMMON NORMALS: normal to inspection and full ROM Neuro: COMMON NORMALS: patient oriented x3, moves all extremities and no focal motor deficits Psych: COMMON NORMALS: mental status grossly normal, Normal thought process present and cooperative THOUGHT PROCESS: Normal thought process present Skin: COMMON NORMALS: no rashes or lesions noted and no wounds GENERAL SKIN EXAM: no rashes or lesions noted Course Vital Signs: Vital signs: Vital Signs Temperature 98.1 F 01/04/24 16:56 Pulse Rate 97 01/04/24 16:56 Respiratory Rate 16 01/04/24 16:56 Blood Pressure 149/104 01/04/24 16:56 Pulse Oximetry 97 01/04/24 16:56 Oxygen Delivery Me thod Room Air 01/04/24 16:56 MDM - Psych Medical Decision Making Patient presents here with history of bipolar she has been not taking her meds for over a month and is feeling manic she voluntarily wants to be admitted this time is not suicidal or homicidal will admit her under voluntary status. Medical Records I reviewed the patient's medical records. Lab Data I reviewed the patient's lab results. No radiology studies performed this visit Discharge Plan Discharge Patient Disposition: Admitted As Inpatient Clinical Impression: Bipolar 1 disorder Condition: Stable Coding Level of Care Code ED Maintenance Job Titles for Gregg Eid
[2024-01-04 17:36] LABS: Basophils # 0.1 10^3/uL (0.0-0.1); Basophils % 0.6 %; Eosinophils % 0.3 %; Hematocrit 40.2 % (36-47); Lymphocytes # 1.1 10^3/uL (0.8-4.8); Lymphocytes % 14.4 %; Mean Corpuscular HGB Conc 33.6 g/dL (30-55); Mean Corpuscular Hemoglobin 32.2 pg (27-33); Mean Corpuscular Volume 95.9 fl (85-98); Mean Platelet Volume 11.4 fL (7.4-10.4); Monocytes # 0.6 10^3/uL (0.2-0.9); Monocytes % 7.7 %; Neutrophils # 5.96 10^3/uL (1.8-7.7); Neutrophils % 76.6 %; Nucleated Red Blood Cells % 0 %; Platelet Count 235 10^3/cmm (157-399); Red Blood Count 4.19 10^6/uL (3.85-5.65); Red Cell Distribution Width 11.9 % (12.1-15.1); White Blood Count 7.78 10^3/uL (3.29-11.43)
[2024-01-04 17:46] LABS: HCG Qualitative Urine. Negative (Negative)
[2024-01-04 17:49] VITALS: BP 159/98; PULSE 71; O2SAT 100
[2024-01-04 18:00] LABS: Alanine Aminotransferase 19 U/L (0-33); Albumin Level 4.5 g/dL (3.5-5.2); Alkaline Phosphatase 49 U/L (35-105); Anion Gap 16.6 (5-19); Aspartate Amino Transferase 17 U/L (0-32); Blood Urea Nitrogen 6 mg/dL (6-20); Carbon Dioxide 25 mmol/L (22-29); Chloride 100 mmol/L (98-107); Glomerular Filtration Rate 142.1 mL/min (90-130); Glucose 108 mg/dL (65-115); Osmolality Calculated 284 mOsm/kg (285-295); Potassium 3.6 mmol/L (3.5-5.1); Sodium 138 mmol/L (136-145); Total Protein 7.5 g/dL (6.6-8.7)
[2024-01-04 18:03] LABS: Acetaminophen < 5.0 ug/mL (10-30); Alcohol Level < 10 mg/dL (0-10); Salicylate < 0.3 mg/dL (3-10)
[2024-01-04 18:06] VITALS: BP 145/103; PULSE 76; RESP 18; TEMP 36.6; O2SAT 100
[2024-01-04 18:31] LABS: Amphetamines Screen Urine Negative (Negative); Barbiturates Screen Urine Negative (Negative); Benzodiazepines Screen Urine Negative (Negative); Cocaine Screen Urine Negative (Negative); Opiate Screen Urine Negative (Negative); PCP Screen Urine Negative (Negative); THC Screen Urine Negative (Negative)
--- NOTE | 2024-01-04 18:51 | PC.NURSE ---
Patient arrived from ED to unit at 1801 accompanied by security and ED staff. Patient came to the ED seeking help to get restarted on medications. Patient stated that she was on lamictal and wellbutrin. Patient stated that she stopped taking the wellbutrin one month ago and stopped taking the lamictal 3 months ago. Patient reports racing thoughts, saying I can't seem to get out of my head. It's everything... Patient says that she got approximately two hours of sleep last night. Patient denies thoughts that tell herself to harm herself or to harm others. Patient also denies SI, HI, AVH. Patient reports a suicide attempt in 2021. Patient sees Dr. Thao. Patient says that she occasionally drinks some alcohol, and she smoked marijuana this past weekend.
[2024-01-04 19:54] VITALS: BP 137/96; PULSE 79; RESP 16; TEMP 36.8; O2SAT 98
[2024-01-04] MEDS: trazodone 50 mg Tablet PO (20:09)
[2024-01-04] MEDS: OLANZapine 5 mg ODT PO (20:09)
[2024-01-04] MEDS: nicotine 2 mg Gum BUCCAL (20:12)
[2024-01-05 06:00] VITALS: BP 114/65; PULSE 78; RESP 16; TEMP 36.9; O2SAT 97
[2024-01-05] MEDS: nicotine 2 mg Gum BUCCAL ×5 (08:14→20:51)
[2024-01-05 14:00] VITALS: BP 125/88; PULSE 89; RESP 16; TEMP 36.8; O2SAT 99
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
[2024-01-05] MEDS: lamoTRIgine 25 mg Tablet 50 MG PO (16:22)
[2024-01-05] MEDS: lurasidone 20 mg Tablet 40 MG PO (17:49)
[2024-01-05 20:28] VITALS: BP 126/81; PULSE 105; RESP 18; TEMP 36.4; O2SAT 99
[2024-01-06 06:00] VITALS: BP 124/95; PULSE 77; RESP 17; TEMP 36.6; O2SAT 99
[2024-01-06] MEDS: nicotine 2 mg Gum BUCCAL ×5 (06:29→18:01)
[2024-01-06] MEDS: lamoTRIgine 25 mg Tablet 50 MG PO (08:40)
--- NOTE | 2024-01-06 13:58 | P.NPUPN_ITS ---
Subjective NPU 2 Subjective: 33-year-old female with a history of typ e I bipolar disorder admitted with increased manic symptoms and increased dysphoria. The patient was pleasant and cooperative on the milieu. She had no particular issues. She had stated that her thoughts continued to race and reported some depressed mood as well. She had minimized any suicidal thoughts at this time she reported that the Latuda had been helpful without any noted side effects. She had reported struggles with energy and concentration and stated that previous medications including lithium had made her more sedated and fatigued. Mental Status Exam 2 MSE Comments: Casually dressed female who appeared her stated age with fair hygiene and fair eye contact. She was alert and oriented to person, place, time and situation. Her hygiene appeared adequate. Her speech is regular in rate, rhythm, volume, tone, and prosody. There was no evidence of psychomotor agitation or psychomotor retardation. Her mood is described as better. Her affect appeared less irritable. Normal her thought process was linear, logical, goal-directed. She denied any homicidal or suicidal ideation. There was no clear evidence of delusional thinking. Her recent and remote memory were intact. She was cooperative on interview. Her insight was fair. Her judgment was poor. Her impulse control appeared to be improving. Vitals/I&O/Wt Last Vital Signs Temp 97.9 F 01/06/24 06:00 Pulse 77 01/06/24 06:00 Resp 17 01/06/24 06:00 BP 124/95 01/06/24 06:00 Pulse Ox 99 01/06/24 06:00 O2 Del Method Room Air 01/04/24 18:10 01/05/24 01/06/24 01/06/24 22:59 06:59 14:59 Intake Total 480 / 480 Balance 480 / 480 Weight last 48 hrs Weight 68.039 kg Data NPU 01/04/24 17:20 01/04/24 17:20 A&P Assessment and plan (1) Bipolar 1 disorder: (2) Hypomanic episode: Plan 33-year-old female with a history of type I bipolar disorder admitted with mixed mood symptoms currently in a hypomanic episode and not psychotic requesting medication for mood stabilization prior to worsening of mood symptoms as seen previously leading to other inpatient hospitalizations. #1.? Engage patient in individual milieu and group therapy. #2?? Recommend sober living treatment at the highest level of care to which the patient is willing to commit #3??? Discussed medication reconciliation, will restart lamotrigine 25mg bid and begin Latuda 40mg at night with food for bipolar disorder. Patient likely to restart wellbutrin xl 150mg in am. #4?? TO-15 minute checks? #5?? Will attempt to gather collateral information Involuntary Hold Information 2 96 Hour Hold: 96 Hour Involuntary Admission: No Attestations NPU 2 Medical Necessity Statement*: Inpatient hospitalization is medically necessary and deemed to ?be ?the clinically appropriate intervention ?at this time.? We will monitor/initiate medications and make changes as indicated.? The patient will be in the hospital for over 2 midnights.? The patient?s likely length of stay 3-5 days. Coding Level of Care Code Acute Code for Chg Fwd Diagnoses Bipolar 1 disorder F31.9 Hypomanic episode F30.8
[2024-01-06 14:00] VITALS: BP 133/95; PULSE 88; RESP 18; TEMP 36.6; O2SAT 99
[2024-01-06] MEDS: lurasidone 20 mg Tablet 40 MG PO (18:00)
[2024-01-06 20:31] VITALS: BP 123/81; PULSE 93; RESP 18; TEMP 36.5; O2SAT 98
[2024-01-07 06:00] VITALS: BP 110/77; PULSE 72; RESP 18; TEMP 36.8; O2SAT 98
[2024-01-07] MEDS: nicotine 2 mg Gum BUCCAL ×3 (06:00→11:49)
--- NOTE | 2024-01-07 08:29 | PC.NURSE ---
Morning assessment Patient states that she is feeling much better. Patient states that she doesn't really have racing thoughts any longer. Patient states that she is excited about being started on Latuda after being educated on her diagnosis. Patient cooperative and calm. BM today.
[2024-01-07] MEDS: buPROPion XL (24 HR) 150 mg Tablet PO (08:45)
[2024-01-07] MEDS: lamoTRIgine 25 mg Tablet 50 MG PO (08:46)
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
[2024-01-07 11:38] VITALS: BP 110/77; PULSE 72; RESP 18; TEMP 36.8; O2SAT 98
== END 2024-01-07 12:43 | disposition home or self-care (01) | DRG 885 ==
LOC: ER 17:29 → NP 17:42
PROVIDERS: Admitting Provider Psychiatry & Neurology Psychiatry; Emergency Provider Emergency Medicine; PCP Family Medicine; Visit Provider Psychiatry & Neurology Psychiatry
DX: F31.0 Bipolar disorder, current episode hypomanic (principal); R45.851 Suicidal ideations; T43.296A Underdosing of other antidepressants, initial encounter; Z91.128 Patient's intentional underdosing of medication regimen for other reason; Z91.51 Personal history of suicidal behavior; Z81.8 Family history of other mental and behavioral disorders
CPT/HCPCS: 36415; 80053; 80306; 80307; 81025; 85025; 97150; 97165; 99285

== ENCOUNTER 2024-01-24 08:20 | Outpatient (CLI) | payer MEDICAID, SELFPAY ==
--- NOTE | 2024-01-24 08:27 | US_ITS ---
WS: [id number] THYROID ULTRASOUND HISTORY: HYPERTHYROIDISM COMPARISON: None available. Right lobe: 1.3 cm x 1.3 cm x 4.6 cm (w x ap x l). Volume: 3.7 cm3. Normal size and echotexture. There is a small colloid cyst in the central gland. Maximum diameter col loid cyst is 2.7 mm. Left lobe: 1.5 cm x 1.4 cm x 3.4 cm (w x ap x l). Volume: 3.5 cm3. Normal size and echotexture. No significant or dominant nodules are present. Isthmus: 0.2 cm. US/US thyroid 37208 IMPRESSION: 1. No solid or suspicious thyroid masses. 2. Tiny colloid cyst RIGHT thyroid.
== END 2024-01-24 08:21 | disposition home or self-care (01) ==
LOC: RAD 08:21
PROVIDERS: PCP Family Medicine; Visit Provider Family Medicine
DX: E05.90 Thyrotoxicosis, unspecified without thyrotoxic crisis or storm (principal); E04.1 Nontoxic single thyroid nodule
CPT/HCPCS: 76536

== ENCOUNTER → 2024-04-10 09:45 | Outpatient (BNVA) | payer MEDICAID, SELFPAY | PROVIDERS: PCP Family Medicine; Visit Provider Emergency Medicine | DX: B34.9 Viral infection, unspecified (principal) | CPT/HCPCS: 87400 ==

== ENCOUNTER 2024-06-22 12:19 | Inpatient (IN) | payer MEDICAID, SELFPAY ==
[2024-06-22 12:21] VITALS: BP 171/109; PULSE 99; RESP 20; TEMP 37.3; O2SAT 100
--- NOTE | 2024-06-22 12:33 | ED.C_ITS ---
HPI - Psych 2 General: Chief Complaint: Psychiatric Symptoms Stated Complaint: mhe Time Seen by Provider: 06/22/24 12:20 Source: patient and EMS Mode of arrival: EMS Limitations: no limitations History of Present Illness: 33-year-old female history of bipolar di sorder brought in by EMS from police with acute psychosis patient here has flight of ideas is aggressive as well. Affidavit filled out by police states that they recall that she had been erratic at home. She has not been taking her meds. Associated symptoms: Reports delusions Related Data Previous Rx's ?Medication ?Instructions ?Recorded bupropion HCl 300 mg 24 hr tablet, 300 mg PO QAM #30 t abs 02/21/24 extended release (Wellbutrin XL) lamotrigine 100 mg tablet 100 mg PO BID #60 tabs 02/20 (Lamictal) lurasidone 20 mg tablet (Latuda) 20 mg PO .HS #30 tabs 05/12/24 Allergies Allergy/AdvReac Type Severity Reaction Status Date / Time Alpha-Gal Allergy ADR-Vomitin Verified 05/12/24 14:53 (Vryiutueh-Xhowm-2,3-Gala g Review of Systems 2 Const: Denies: fever(s), chills, body aches or change in appetite ENMT: Denies: throat pain or dental pain Card: Denies: chest pain Resp: Denies: dyspnea GI: Denies: abdominal pain, nausea, vomiting or diarrhea Musc: Denies: neck pain or back pain Skin/Breast: Denies: rash Psych: Reports: paranoia All/Imm: Denies: urticaria PFSH ED 2 PFSH: Medical History Psychiatric care Social History Smoking and tobacco/nicotine status: former use of tobacco/nicotine Quit status (tobacco/nicotine): has quit using Year quit tobacco: 2020 Second hand smoke exposure: No Alcohol intake: former Substance/Drug Use: former Physical Exam 2 Const: COMMON NORMALS: no acute distress, patient oriented x3 and healthy appearing HENMT: COMMON NORMALS: normocephalic and atraumatic HEAD & SCALP: n ormocephalic and atraumatic Eye: COMMON NORMALS: conjunctivae normal CONJUNCTIVA: Yes conjunctivae normal Neck/C-Spine: COMMON NORMALS: full ROM and supple Chest: COMMONS NORMALS: normal inspection of the chest Resp: COMMON NORMALS: normal respiratory effort Cardio: COMMON NORMALS: regular rate, regular rhythm and No murmurs present (Cardio) RATE: regular rate RHYTHM: regular rhythm GI: COMMON NORMALS: Normal to inspection, nondistended, normoactive bowel sounds present, Soft to palpation, non-tender and no masses PALPATION: Yes Soft to palpation Extremity: COMMON NORMALS: normal to inspection and full ROM Neuro: COMMON NORMALS: patient oriented x3, moves all extremities and no focal motor deficits Psych: ATTITUDE: Yes bizarre THOUGHT CONTENT: Yes delusions Skin: COMMON NORMALS: no rashes or lesions noted and no wounds GENERAL SKIN EXAM: no rashes or lesions noted Course 2 Vital Signs: Vital signs: Vital Signs Temperature 99.2 F 06/22/24 12:21 Pulse Rate 99 06/22/24 12:21 Respiratory Rate 20 H 06/22/24 12:21 Blood Pressure 171/109 06/22/24 12:21 Pulse Oximetry 100 06/22/24 12:21 Oxygen Delivery Me thod Room Air 06/22/24 12:21 MDM - Psych Medical Decision Making Patient presents here with acute psychosis patient is medically cleared I spoke to psychiatrist will admit on a 96-hour hold Medical Records I reviewed the patient's medical records. Lab Data I reviewed the patient's lab results. 06/22/24 12:43 06/22/24 12:43 Laboratory Results WBC 8.42 10^3/uL (3.29-11.43) 06/22/24 12:43 RBC 4.17 10^6/uL (3.85-5.65) 06/22/24 12:43 Hgb 13.60 g/dL (11.27-16.99) 06/22/24 12:43 Hct 43.0 % (36-47) 06/22/24 12:43 MCV 103.1 fl (85-98) H 06/22/24 12:43 MCH 32.6 pg (27-33) 06/22/24 12:43 MCHC 31.6 g/dL (30-55) 06/22/24 12:43 RDW 11.9 % (12.1-15.1) L 06/22/24 12:43 Plt Count 262 10^3/cmm (157-399) 06/22/24 12:43 MPV 10.9 fL (7.4-10.4) H 06/22/24 12:43 Neut % (Auto) 70.5 % 06/22/24 12:43 Lymph % (Auto) 19.2 % 06/22/24 12:43 [place] % (Auto) 8.8 % 06/22/24 12:43 Eos % (Auto) 0.6 % 06/22/24 12:43 Baso % (Auto) 0.7 % 06/22/24 12:43 Neut # (Auto) 5.93 10^3/uL (1.8-7.7) 06/22/24 12:43 Lymph # (Auto) 1.6 10^3/uL (0.8-4.8) 06/22/24 12:43 [place] # (Auto) 0.7 10^3/uL (0.2-0.9) 06/22/24 12:43 Eos # (Auto) 0.1 10^3/uL (0.0-0.8) 06/22/24 12:43 Baso # (Auto) 0.1 10^3/uL (0.0-0.1) 06/22/24 12:43 Nucleated RBC % (auto) 0 % 06/22/24 12:43 Nucleated RBCs # 0.0 /100WBC 06/22/24 12:43 Sodium 136 mmol/L (136-145) 06/22/24 12:43 Potassium 3.2 mmol/L (3.5-5.1) L 06/22/24 12:43 Chloride 98 mmol/L (98-107) 06/22/24 12:43 Carbon Dioxide 22 mmol/L (22-29) 06/22/24 12:43 Anion Gap 19.2 (5-19) H 06/22/24 12:43 BUN 7 mg/dL (6-20) 06/22/24 12:43 Creatinine 0.8 mg/dL (0.5-0.9) 06/22/24 12:43 GFR Calculation 82.6 mL/min (90-130) L 06/22/24 12:43 Glucose 113 mg/dL (65-115) 06/22/24 12:43 Calculated Osmolality 281 mOsm/kg (285-295) L 06/22/24 12:43 Calcium 9.3 mg/dL (8.5-10.5) 06/22/24 12:43 Total Bilirubin 0.7 mg/dL (0.15-1.2) 06/22/24 12:43 AST 20 U/L (0-32) 06/22/24 12:43 ALT 19 U/L (0-33) 06/22/24 12:43 Alkaline Phosphatase 45 U/L (35-105) 06/22/24 12:43 Total Protein 7.8 g/dL (6.6-8.7) 06/22/24 12:43 Albumin 4.7 g/dL (3.5-5.2) 06/22/24 12:43 Globulin 3.1 g/dL (1.3-4.6) 06/22/24 12:43 Salicylates < 0.3 mg/dL (3-10) L 06/22/24 12:43 Acetaminophen < 5.0 ug/mL (10-30) L 06/22/24 12:43 Ethyl Alcohol < 10 mg/dL (0-10) 06/22/24 12:43 No radiology studies performed this visit Discharge Plan Discharge Patient Disposition: Admitted As Inpatient Clinical Impression: Acute psychosis Condition: Stable Coding Level of Care Code ED [employer] Basic for Gregg Eid
[2024-06-22] MEDS: haloperidol inj 5 mg/mL INJ 1 mL IM (12:38)
[2024-06-22] MEDS: LORazepam 2 mg/mL INJ 1 mL 1 MG IM (12:38)
[2024-06-22 12:47] LABS: Basophils # 0.1 10^3/uL (0.0-0.1); Basophils % 0.7 %; Eosinophils # 0.1 10^3/uL (0.0-0.8); Eosinophils % 0.6 %; Lymphocytes # 1.6 10^3/uL (0.8-4.8); Lymphocytes % 19.2 %; Mean Corpuscular HGB Conc 31.6 g/dL (30-55); Mean Corpuscular Hemoglobin 32.6 pg (27-33); Mean Corpuscular Volume 103.1 fl (85-98); Mean Platelet Volume 10.9 fL (7.4-10.4); Monocytes # 0.7 10^3/uL (0.2-0.9); Monocytes % 8.8 %; Neutrophils # 5.93 10^3/uL (1.8-7.7); Neutrophils % 70.5 %; Nucleated Red Blood Cells % 0 %; Platelet Count 262 10^3/cmm (157-399); Red Blood Count 4.17 10^6/uL (3.85-5.65); Red Cell Distribution Width 11.9 % (12.1-15.1); White Blood Count 8.42 10^3/uL (3.29-11.43)
[2024-06-22 13:05] LABS: Alanine Aminotransferase 19 U/L (0-33); Albumin Level 4.7 g/dL (3.5-5.2); Alkaline Phosphatase 45 U/L (35-105); Anion Gap 19.2 (5-19); Aspartate Amino Transferase 20 U/L (0-32); Blood Urea Nitrogen 7 mg/dL (6-20); Calcium 9.3 mg/dL (8.5-10.5); Carbon Dioxide 22 mmol/L (22-29); Chloride 98 mmol/L (98-107); Globulin 3.1 g/dL (1.3-4.6); Glomerular Filtration Rate 82.6 mL/min (90-130); Glucose 113 mg/dL (65-115); Osmolality Calculated 281 mOsm/kg (285-295); Potassium 3.2 mmol/L (3.5-5.1); Sodium 136 mmol/L (136-145); Total Bilirubin 0.7 mg/dL (0.15-1.2); Total Protein 7.8 g/dL (6.6-8.7)
[2024-06-22 13:09] LABS: Acetaminophen < 5.0 ug/mL (10-30); Alcohol Level < 10 mg/dL (0-10); Salicylate < 0.3 mg/dL (3-10)
--- NOTE | 2024-06-22 13:20 | PC.NURSE ---
this nurse assumed pt care from Barbara MARTIN at 1305.
--- NOTE | 2024-06-22 13:37 | PC.NURSE ---
96 hr rights attempted to be reviewed with patient @1221 with assistance of [facility] Physician Compensation Analyst Reagan Stewatr. Pt refused to acknowledge hold, and continuously repeated all statements made by this HS without giving any verbal understanding to hold parameters. The only verbalized statement made in regards to hold was that she was under a 72 hr hold, and not a 96. HS educated on 96 hr hold being the standard set timeframe the [facility] adheres to. [employer] officer X1, EVALUATION ANALYST X3, and this HS present for rights being served. Pt copy was left with patient @bedside. Patient provided a soda after being changed into scrubs, VS taken, and lab work drawn.
[2024-06-22 16:15] VITALS: BP 139/85; PULSE 105; RESP 18; TEMP 36.6; O2SAT 98
--- NOTE | 2024-06-22 16:57 | PC.NURSE ---
Pt came to the ER with what she reports as a manic episode. She states that she is feeling much better after getting medication. She is very sleepy and struggles to answer questions d/t dozing off during assessment. She did say that she is dealing with moving into a new large home and that has been a challenge for her. When I was doing the Suicide Risk Assessment she became tearful and states that everything is just a lot right now. I kept her assessment short so she could go back to resting. No wounds or sores are noted on her body. She does report having alpha gal. She states that she gets care at [facility]. She was appologetic for her behaviors in ER. We will attempt to get a UDS on pt when she is awake again.
[2024-06-22 19:54] VITALS: BP 128/79; PULSE 106; RESP 18; TEMP 37.2; O2SAT 100
[2024-06-23 06:00] VITALS: BP 127/76; PULSE 102; RESP 16; TEMP 36.9; O2SAT 99
[2024-06-23] MEDS: nicotine 4 mg lozenge MUCOUS MEM ×5 (08:35→17:52)
[2024-06-23] MEDS: lamoTRIgine 100 mg Tablet PO ×2 (08:35→18:03)
[2024-06-23] MEDS: buPROPion XL (24 HR) 300 mg Tablet PO (08:35)
[2024-06-23] MEDS: haloperidol 5 mg Tablet PO (09:01)
[2024-06-23 09:19] LABS: Amphetamines Screen Urine Negative (Negative); Barbiturates Screen Urine Negative (Negative); Benzodiazepines Screen Urine Positive (Negative); Cocaine Screen Urine Negative (Negative); Opiate Screen Urine Negative (Negative); PCP Screen Urine Negative (Negative); THC Screen Urine Negative (Negative)
[2024-06-23 09:54] LABS: HCG Qualitative Urine. Negative (Negative)
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
[2024-06-23 14:00] VITALS: BP 93/56; PULSE 84; RESP 18; TEMP 36.6; O2SAT 99
[2024-06-23] MEDS: lurasidone 20 mg Tablet 40 MG PO (18:03)
[2024-06-23 19:51] VITALS: BP 122/77; PULSE 93; RESP 18; O2SAT 100
[2024-06-24 06:00] VITALS: BP 125/81; PULSE 78; RESP 16; O2SAT 100
[2024-06-24] MEDS: nicotine 4 mg lozenge MUCOUS MEM ×4 (08:03→16:31)
[2024-06-24] MEDS: buPROPion XL (24 HR) 300 mg Tablet PO (08:03)
[2024-06-24] MEDS: lamoTRIgine 100 mg Tablet PO ×2 (08:03→17:24)
[2024-06-24] MEDS: haloperidol 5 mg Tablet PO (12:48)
[2024-06-24 14:00] VITALS: BP 115/75; PULSE 66; RESP 18; TEMP 36.8; O2SAT 100
--- NOTE | 2024-06-24 14:53 | P.NPUPN_ITS ---
Subjective NPU 2 Subjective: 33-year-old female with a history of typ e I bipolar disorder admitted with increased manic symptoms and increased dysphoria. The patient had continued to report some manic symptoms stating that she was concerned about her thoughts as she had reported that they were moving fast. She had reported that she continued to feel worried about her belief that she was in a simulation. She had stated that she had had a history of mixed mood symptoms with periods of depression suicidal ideation along with decreased need for sleep and increased energy. She had remained isolative on the milieu. She had expressed concern that she thought she may have schizophrenia but denied any history of chronic psychotic symptoms as she reported that when her verónica was resolved that her psychosis was also resolved. Mental Status Exam 2 MSE Comments: Casually dressed female who appeared her stated age with fair hygiene and fair eye contact. She was alert and oriented to person, place, time and situation. Her hygiene appeared adequate. Her speech is regular in rate, rhythm, volume, tone, and prosody. There was no evidence of psychomotor agitation or psychomotor retardation. Her mood is described as worried. Her affect appeared irritable and mood congruent. Her thought process was linear, logical, goal-directed. She denied any homicidal or suicidal ideation. She had alluded to being part of a simulation. Her recent and remote memory were intact. She was cooperative on interview. Her insight was poor. Her judgment was poor. Her impulse control appeared poor. Vitals/I&O/Wt Last Vital Signs Temp 98 F 06/23/24 14:00 Pulse 78 06/24/24 06:00 Resp 16 06/24/24 06:00 BP 125/81 06/24/24 06:00 Pulse Ox 100 06/24/24 06:00 O2 Del Method Room Air 06/23/24 06:00 Weight last 48 hrs Weight 70.307 kg Data NPU 06/22/24 12:43 06/22/24 12:43 A&P Assessment and plan (1) Bipolar I disorder, most recent episode mixed, severe with psychotic features: (2) Bipolar 1 disorder: Plan 33-year-old female with a history of type I bipolar disorder admitted with mixed mood symptoms currently psychotic having once again been noncompliant with her medications for treating bipolar disorder. #1.? Engage patient in individual milieu and group therapy. #2?? Recommend sober living treatment at the highest level of care to which the patient is willing to commit #3??? Discussed medication reconciliation, will continue lamotrigine 100mg bid and increase Increase Latuda 60mg at night with food for bipolar disorder. Continue Wellbutrin xl 300mg in am. #4?? TO-15 minute checks? PDMP PDMP Reviewed: Not Reviewed Involuntary Hold Information 2 Hold Status: Legal Status: 96 Hour Hold Date/Time Hold Expires: 06/27/2024 @ 0001 96 Hour Hold: 96 Hour Involuntary Admission: No Attestations NPU 2 Medical Necessity Statement*: Inpatient hospitalization is medically necessary and deemed to ?be ?the clinically appropriate intervention ?at this time.? We will monitor/initiate medications and make changes as indicated.? The patient?s likely length of stay 3-5 days. Coding Level of Care Code Acute Code for Chg Fwd Diagnoses Bipolar I disorder, most recent episode mixed, severe with psychotic features F31.64 Bipolar 1 disorder F31.9
[2024-06-24] MEDS: lurasidone 20 mg Tablet 60 MG PO (17:24)
[2024-06-24 20:14] VITALS: BP 103/68; PULSE 78; RESP 18; TEMP 37; O2SAT 99
[2024-06-25 06:00] VITALS: BP 115/57; PULSE 78; RESP 16; O2SAT 99
[2024-06-25] MEDS: lamoTRIgine 100 mg Tablet PO (07:55)
[2024-06-25] MEDS: buPROPion XL (24 HR) 300 mg Tablet PO (07:55)
[2024-06-25] MEDS: nicotine 4 mg lozenge MUCOUS MEM (07:55)
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
[2024-06-25 11:07] VITALS: BP 115/57; PULSE 78; RESP 16; TEMP 37; O2SAT 99
== END 2024-06-24 13:22 | disposition home or self-care (01) | DRG 885 ==
LOC: ER 13:46 → NP 16:02
PROVIDERS: Admitting Provider Psychiatry & Neurology Psychiatry; Emergency Provider Emergency Medicine; PCP Family Medicine; Visit Provider Psychiatry & Neurology Psychiatry
DX: F31.0 Bipolar disorder, current episode hypomanic (principal); Z91.014 Allergy to mammalian meats
CPT/HCPCS: 80053; 80306; 80307; 81025; 85025; 96372; 97150; 97165; 99285; 99291; J1630; J2060; J9999

== ENCOUNTER 2024-10-12 13:48 | Emergency (ER) | payer MEDICAID, SELFPAY ==
--- OUTSIDE RECORDS SUMMARY | 2017-04-09 09:30 | XMS_ITS | Continuity of Care Document ---
Author Organization [facility] Address [address] [place] [address] Phone Care Team Providers Care Coat Check Attendant Name Role Phone Unavailable Unavailable Unavailable Advance Directives Directive Yes / No Effective Date File Name No Information Encounters Encounter Description Practice Location Reason(s) For Visit Diagnoses Date Provider Providers Copied on Encounter [facility], [address], [place], [address], tel:[phone] [facility] OFFICE No Information 8 No Information Referring Provider: ALEXUS KAUFMAN MD, [address], [place], [address]. tel:[phone] Family History Family Member Type Diagnosis Age At Onset No Information Payers Payer name Insurance type Covered alliance party ID Authoriza tion(s) EMPLOYEE [facility] [employer] IPA HMO [facility] [id number] Social History Type Description Quantity Date Captured Comments Sex Female Smoking Status No Information Chief Complaint And Reason For Visit No Information History Of Present Illness Encounter Date Complaint History Of Prese nt Illness No Information Instructions Date Instruction Additional Infor mation No Information Assessments Type Assessment Date No Information
--- OUTSIDE RECORDS SUMMARY | 2021-10-10 11:02 | XMS_ITS | Continuity of Care Document ---
Author Organization [facility] Address [address] [place] [address] Phone Care Team Providers Care Contract Manager Name Role Phone Services, Enabling Unavailable Unavailable [...] Diagnoses Date Provider Providers Copied on Encounter [facility], [address] [place] [address], [id number], [place] tel:[phone] Z Default Location No Information 2 Services Enabling. [address] [place] [address], [id number] , [place]. tel: [phone] [facility], [address] [place] [address], [id number], [place] tel:[phone] [facility] routine (chief complaint) Nausea/vomiting in pregnancySecond trimester 2 Evie Pierre. [address] [place] [address] Drive [address], [place], [address]. tel: [phone] [facility], [address] [place] [address], [id number], [place] tel:[phone] [facility] [employer] New OB (chief complaint) Supervision of other high risk , antepartumRoutine screening for STI (sexually transmitted infection)Encount er for gynecological examination (general) (routine) without abnormal findings 2 Vilma Haro. [facility], [address], [place], [address], [place]. tel: [phone] [employer], [address] [place] [address], [id number], [place] tel:[phone] [facility] Education [facility] Encounter for suprvsn of normal , first trimester 2 CPHW/RN Worker. [address] [place] [address] Dr, [address], [place], [place], [id number] . tel: [phone] Consulting Provider: Shanel Mak, [address] [facility], [place], [address]. tel:[phone] [employer], [address] [place] [address], [id number], [place] tel:[phone] [facility] Bipolar disord, in partial remis, most recent episode mixedPost-traumat ic stress disorder, chronic 2 Gautam Lee. [address] [facility], [address], [place], [address], [place]. tel: [phone] Preven Meds E&m Estab Pt; 18-3 [facility], [address] [place] [address], [id number], [place] tel:[phone] [facility] career portals teacher irreg. bleeding (chief complaint) Encounter for gynecological examination (general) (routine) without abnormal findingsIrregular intermenstrual bleeding 2 Naveen Christy. [address] [facility], [facility] [address], [place], [place], [id number] , [place]. tel: [phone] [facility] [employer], [address] [place] [address], [id number], [place] tel:[phone] [facility] Bipolar disord, in partial remis, most recent episode mixed 1 Gautam Lee. [address] [facility], [address], [place], [address], [place]. tel: [phone] Offic/outpt E&m Estab Low-mod [facility], [address] [place] [address], [id number], [place] tel:[phone] [facility] *ADD (chief complaint) Impaired concentration 1 Caesar Dobson . [address] [place], [address], [place]. [employer] [facility] [employer]), [address] [place] [address], [id number], [place] tel:[phone] [facility], [facility] No Information 1 Humble Smith. [address] [facility], [address], [place], [address], [place]. tel: [phone] Offic/outpt E&m Estab Mod-hi 2 [facility]), [address] [place] [address], [id number], [place] tel:[phone] [facility] Right shoulder pain* (chief complaint) Radicular pain in right arm 9 Kenya Cole. [address] [place], [place], [id number] , [place]. tel: [phone] OFFICE/OUTPA TIENT VISIT, [facility], [address] [place] [address], [id number], [place] tel:[phone] [facility] Abdominal pain (chief complaint) Lower abdominal pain 9 Lavonne Braden. [address] [place], [address], [place]. tel: [phone] OFFICE/OUTPA TIENT VISIT, [facility], [facility] [place], [place], [id number], [place] tel:[phone] [facility] enlarged thyroid (chief complaint) Enlarged thyroid 9 Raoul Salguero. [address], [place], [address]. tel: [phone] Family History Family Member Type Diagnosis Age At Onset No Information Immunizations Vaccine Date Status Comments Flucelvax (2 yrs+) refused Source: N ew Immunization Record Tdap administered Source: Other R egistry Payers Payer name Insurance type Covered constitution party ID Authoriza leti(s) [facility] [id number] Wrap 18 [facility] [id number] [facility] [id number] Wrap [employer] [facility] [id number] Social History Type Description Quantity Date Captured [...] Future Order: Lab Order AFP SO FRY ([id number]), Sent on: Sent History Of Present Illness Encounter Date Complaint History Of Prese nt Illness routine New OB 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 bleeding Pt had l mp feb [...] Information Instructions Date Instruction Additional Infor mation Vitamin B6 sent. Related to Naus ea/vomiting in Labs and imaging ord ered. Will f/up w/ abnormal results. Related to Second trimester pt advised that blee ding was probably due to missed bc plls and advised to take pills as directed and if she has any other Related to Irregular intermenstrual bleeding Medication has been prescribed, please go to the pharmacy and chart picker your prescription today, so you can start [...]
--- NOTE | 2024-10-12 14:04 | W.ED.PSYCHS ---
HPI - Psych General: Chief Complaint: Psychiatric Symptoms Stated Complaint: HEARING VOICES Time Seen by Provider: 10/12/24 13:49 History of Present Illness: 33-year-old female presents with hearing thoughts of someone feeling that she is just no good. She has a history of bipolar schizophrenia and sounds as if she has not been on her medications. Patient was [facility] when this happened. PD reports that when they got there she was very uncontrolled and all over the place. That she will be very calm and then get very aggressive and lashing out per EMS and PD. Related Data Previous Rx's ?Medication ?Instructions ?Recorded bupropion HCl 300 mg 24 hr tablet, 300 mg PO QAM 30 days #30 tabs 07/02/24 extended release lamotrigine 100 mg tablet 100 mg PO BID 30 days #60 tabs 07/02/24 (Lamictal) lurasidone 60 mg tablet (Latuda) 60 mg PO 1800 #30 tabs 07/02/24 Allergies Allergy/AdvReac Type Severity Reaction Status Date / Time Alpha-Gal Allergy ADR-Vomitin Verified 10/06/24 15:33 (Iixhpikrv-Salch-2,3-Gala g Review of Systems Const: Denies: fever(s) or chills Card: Denies: chest pain or palpitations Resp: Denies: dyspnea or productive cough GI: Denies: abdominal pain or nausea Neuro: Denies: headache(s) or numbness in extremities Psych: Reports: mood swings and paranoia [facility] PFSH: Medical History (Updated 10/12/24 @ 16:10 by Golden Rabago DO) Psychiatric care Social History Smoking and tobacco/nicotine status: former use of tobacco/nicotine Quit status (tobacco/nicotine): has quit using Year quit tobacco: 2019 Second hand smoke exposure: No Alcohol intake: former Substance/Drug Use: former Course Vital Signs: Vital signs: Vital Signs Oxygen Delivery Me thod Room Air 10/12/24 13:49 MDM - Psych Medical Decision Making Patient with a history of bipolar and episodes of brief psychosis. Patient mentation returned to normal. Patient had no suicidal homicidal ideations. PD chose not ?96 she was not having any suicidal homicidal or significant abnormality noted. Patient was able to answer all questions appropriately for me. Patient was offered inpatient management or further evaluation for her psychosis and feeling of voices. However she declined. She is stable and will be discharged home. I did recommend she follow-up with her behavioral health specialist. She was stable upon discharge. Lab Data 10/12/24 14:19 10/12/24 14:19 Laboratory Results WBC 7.23 10^3/uL (3.29-11.43) 10/12/24 14:19 RBC 4.31 10^6/uL (3.85-5.65) 10/12/24 14:19 Hgb 13.70 g/dL (11.27-16.99) 10/12/24 14:19 Hct 40.2 % (36-47) 10/12/24 14:19 MCV 93.3 fl (85-98) 10/12/24 14:19 MCH 31.8 pg (27-33) 10/12/24 14:19 MCHC 34.1 g/dL (30-55) 10/12/24 14:19 RDW 11.9 % (12.1-15.1) L 10/12/24 14:19 Plt Count 272 10^3/cmm (157-399) 10/12/24 14:19 MPV 11.1 fL (7.4-10.4) H 10/12/24 14:19 Neut % (Auto) 69.2 % 10/12/24 14:19 Lymph % (Auto) 20.6 % 10/12/24 14:19 Josephine % (Auto) 9.0 % 10/12/24 14:19 Eos % (Auto) 0.3 % 10/12/24 14:19 Baso % (Auto) 0.6 % 10/12/24 14:19 Neut # (Auto) 5.01 10^3/uL (1.8-7.7) 10/12/24 14:19 Lymph # (Auto) 1.5 10^3/uL (0.8-4.8) 10/12/24 14:19 Josephine # (Auto) 0.7 10^3/uL (0.2-0.9) 10/12/24 14:19 Eos # (Auto) 0.0 10^3/uL (0.0-0.8) 10/12/24 14:19 Baso # (Auto) 0.0 10^3/uL (0.0-0.1) 10/12/24 14:19 Nucleated RBC % (auto) 0 % 10/12/24 14:19 Nucleated RBCs # 0.0 /100WBC 10/12/24 14:19 Sodium 136 mmol/L (136-145) 10/12/24 14:19 Potassium 3.0 mmol/L (3.5-5.1) L 10/12/24 14:19 Chloride 99 mmol/L (98-107) 10/12/24 14:19 Carbon Dioxide 22 mmol/L (22-29) 10/12/24 14:19 Anion Gap 18.0 (5-19) 10/12/24 14:19 BUN 6 mg/dL (6-20) 10/12/24 14:19 Creatinine 0.9 mg/dL (0.5-0.9) 10/12/24 14:19 GFR Calculation 72.1 mL/min (90-130) L 10/12/24 14:19 Glucose 106 mg/dL (65-115) 10/12/24 14:19 Calculated Osmolality 280 mOsm/kg (285-295) L 10/12/24 14:19 Calcium 9.5 mg/dL (8.5-10.5) 10/12/24 14:19 Total Bilirubin 1.0 mg/dL (0.15-1.2) 10/12/24 14:19 AST 17 U/L (0-32) 10/12/24 14:19 ALT 20 U/L (0-33) 10/12/24 14:19 Alkaline Phosphatase 48 U/L (35-105) 10/12/24 14:19 Total Protein 7.7 g/dL (6.6-8.7) 10/12/24 14:19 Albumin 4.6 g/dL (3.5-5.2) 10/12/24 14:19 Globulin 3.1 g/dL (1.3-4.6) 10/12/24 14:19 Salicylates < 0.3 mg/dL (3-10) L 10/12/24 14:19 Acetaminophen < 5.0 ug/mL (10-30) L 10/12/24 14:19 Ethyl Alcohol < 10 mg/dL (0-10) 10/12/24 14:19 No radiology studies performed this visit Discharge Plan Discharge Patient Disposition: Home Clinical Impression: Acute psychosis, Bipolar disorder Condition: Stable Prescriptions: No Action bupropion HCl 300 mg tablet extended release 24 hr 300 mg PO QAM 30 Days Qty: 30 11RF lamotrigine [Lamictal] 100 mg tablet 100 mg PO BID 30 Days Qty: 60 11RF lurasidone [Latuda] 60 mg tablet 60 mg PO 1800 Qty: 30 11RF Rx Instructions: must administer with food (at least 350 calories) Discharge Orders: Discharge ED (Routine); Ordered 10/12/24 Ordered By: Golden Rabago Referrals: Yarelis Dan DO [Primary Care Provider, ADVERTISING INTERN] Discharge Diet: Usual diet Discharge Activity: Resume usual activity Patient Instructions: Bipolar Disorder (ED), Brief Psychotic Disorder (DC), Opioid Safety, Pain Management, Patient Portal & Lesly Instructions Activity Restrictions/Additional Instructions: Please follow-up your behavioral health specialist tomorrow for reevaluation and medication review. Please return to the ER as needed. Print Language: Icelandic Coding Level of Care Code ED Cradle Slide Maker for Gregg Eid
--- NOTE | 2024-10-12 14:07 | PC.NURSE ---
THIS NURSE ATTEMPTED TO ASSIST PT TO CHANGE INTO GREEN PAPER SCRUBS. PT STATES SHE IS UNABLE TO STAND OR UNDRESS HER SELF. THIS NURSE ATTEMPTED TO HELP PT REMOVE BELONGINGS BUT NEEDED ASSISTANCE. SECURITY CHELSI, AND [facility] PRESENT. SECURITY CHELSI, ASSISTED THIS NURSE IN REMOVING PT BELONGINGS AND CHANGING PT INTO GREEN PAPER SCRUBS.
[2024-10-12 14:58] LABS: Hematocrit 40.2 % (36-47); Hemoglobin 13.70 g/dL (11.27-16.99); Mean Corpuscular HGB Conc 34.1 g/dL (30-55); Mean Corpuscular Hemoglobin 31.8 pg (27-33); Mean Corpuscular Volume 93.3 fl (85-98); Nucleated Red Blood Cells % 0 %; Platelet Count 272 10^3/cmm (157-399); Red Blood Count 4.31 10^6/uL (3.85-5.65); White Blood Count 7.23 10^3/uL (3.29-11.43)
[2024-10-12 15:04] LABS: Alanine Aminotransferase 20 U/L (0-33); Albumin Level 4.6 g/dL (3.5-5.2); Alkaline Phosphatase 48 U/L (35-105); Anion Gap 18.0 (5-19); Aspartate Amino Transferase 17 U/L (0-32); Blood Urea Nitrogen 6 mg/dL (6-20); Calcium 9.5 mg/dL (8.5-10.5); Carbon Dioxide 22 mmol/L (22-29); Chloride 99 mmol/L (98-107); Globulin 3.1 g/dL (1.3-4.6); Glucose 106 mg/dL (65-115); Osmolality Calculated 280 mOsm/kg (285-295); Potassium 3.0 mmol/L (3.5-5.1); Sodium 136 mmol/L (136-145); Total Protein 7.7 g/dL (6.6-8.7)
[2024-10-12 15:15] LABS: Acetaminophen < 5.0 ug/mL (10-30); Alcohol Level < 10 mg/dL (0-10); Salicylate < 0.3 mg/dL (3-10)
== END 2024-10-12 16:27 | disposition home or self-care (01) ==
PROVIDERS: Emergency Provider Student in an Organized Health Care Education/Training Program; PCP Family Medicine
DX: F23 Brief psychotic disorder (principal); F31.9 Bipolar disorder, unspecified; Z87.891 Personal history of nicotine dependence
CPT/HCPCS: 36415; 80053; 80307; 85025; 99283

== ENCOUNTER 2025-01-19 19:57 | Inpatient (IN) | payer MEDICAID, SELFPAY ==
--- OUTSIDE RECORDS SUMMARY | 2017-04-09 08:30 | XMS_ITS | Continuity of Care Document ---
Author Organization [facility] Address [address] [place] [address] Phone Care Team Providers Care Hairspring Truing Inspector Name Role Phone Unavailable Unavailable Unavailable Advance Directives Directive Yes / No Effective Date File Name No Information Encounters Encounter Description Practice Location Reason(s) For Visit Diagnoses Date Provider Providers Copied on Encounter [facility], [address], [place], [address], tel:[phone] [facility] OFFICE No Information 8 No Information Referring Provider: ALEXUS KAUFMAN MD, [address], [place], [address]. tel:[phone] Family History Family Member Type Diagnosis Age At Onset No Information Payers Payer name Insurance type Covered democrat ID Authoriza tion(s) EMPLOYEE [facility] [employer] IPA HMO [facility] [id number] Social History Type Description Quantity Date Captured Comments Sex Female Smoking Status No Information Chief Complaint And Reason For Visit No Information History Of Present Illness Encounter Date Complaint History Of Prese nt Illness No Information Instructions Date Instruction Additional Infor mation No Information Assessments Type Assessment Date No Information
--- OUTSIDE RECORDS SUMMARY | 2021-10-10 10:02 | XMS_ITS | Continuity of Care Document ---
Author Organization [facility] Address [address] [place] [address] Phone Care Team Providers Care Fiberglass Bonding Machine Tender Name Role Phone Services, Enabling Unavailable Unavailable Allergies, Adverse Reactions, Alerts Substance Reaction Status Criticality No Known Allergies Active No Inform ation Medications Medication Instructions Dosage Effective Dates (start - stop) Status Comments Vitamin B-6 25 mg tablet take 1 tablet by oral route in the morning and 1 tablet at bedtime as needed - Active 28 mg-800 mcg tablet take 1 tablet by oral route every day 1 tablet - Active Procedures Procedure Date SUBSEQUENT CARE Antepartum Visit TOBACCO NON-USER SYST BP LT 130 MM HG Systolic: BP < 140 DIAST BP 80-89 MM HG Diastolic: BP <90 WEIGHT RECORDED BODY MASS INDEX DOCD TEST, URINE INITIAL CARE VISIT Initial OB Visit TOBACCO NON-USER SYST BP GE 130 - 139MM HG Systolic: BP < 140 DIAST BP 80-89 MM HG Diastolic: BP <90 WEIGHT RECORDED BODY MASS INDEX DOCD INITIAL COMP NUTR PSYCH HE ASSESS CLIENT ORIEN 15 MIN TELEHEALTH EST E&M 15 MIN SYST BP LT 130 MM HG Systolic: BP < 140 DIAST BP 80-89 MM HG Diastolic: BP <90 WEIGHT RECORDED BODY MASS INDEX DOCD TEST, URINE Preven Meds E&m Estab Pt; 18-3 SYST BP LT 130 MM HG Systolic: BP < 140 DIAST BP 80-89 MM HG Diastolic: BP <90 WEIGHT RECORDED BODY MASS INDEX DOCD PSYCH DIAG EVAL W/MED SERV SYST BP LT 130 MM HG Systolic: BP < 140 DIAST BP 80-89 MM HG Diastolic: BP <90 WEIGHT RECORDED BODY MASS INDEX DOCD Offic/outpt E&m Estab Low-mod SYST BP LT 130 MM HG Systolic: BP < 140 DIAST BP 80-89 MM HG Diastolic: BP <90 WEIGHT RECORDED BODY MASS INDEX DOCD Offic/outpt E&m Estab Mod-hi 2 19 SYST BP LT 130 MM HG Systolic: BP < 140 DIAST BP < 80 MM HG Diastolic: BP <90 WEIGHT RECORDED BODY MASS INDEX DOCD REFLEX URINALYSIS TEST, URINE OFFICE/OUTPATIENT VISIT, NEW OFFICE/OUTPATIENT VISIT, NEW Advance Directives Directive Yes / No Effective Date File Name No Information Encounters Encounter Description Practice Location Reason(s) For Visit Diagnoses Date Provider Providers Copied on Encounter [facility], [address] [place] [address], [id number], [place] tel:[phone] Z Default Location No Information 2 Services Enabling. [address] [place] [address], [id number] , [place]. tel: [phone] [facility], [address] [place] [address], [id number], [place] tel:[phone] [facility] routine (chief complaint) Nausea/vomiting in pregnancySecond trimester 2 Evie Pierre. [address] [place] [address] Drive [address], [place], [address]. tel: [phone] [facility], [address] [place] [address], [id number], [place] tel:[phone] [facility] [employer] New OB (chief complaint) Supervision of other high risk , antepartumRoutine screening for STI (sexually transmitted infection)Encount er for gynecological examination (general) (routine) without abnormal findings 2 Vilma Haro. [facility], [address], [place], [address], [place]. tel: [phone] [facility], [address] [place] [address], [id number], [place] tel:[phone] [facility] Encounter for suprvsn of normal , first trimester 2 CPHW/RN Worker. [address] [place] [address] Dr, [address], [place], [place], [id number] . tel: [phone] Consulting Provider: Shanel Mak, [address] [facility], [place], [address]. tel:[phone] [facility], [address] [place] [address], [id number], [place] tel:[phone] [facility] Bipolar disord, in partial remis, most recent episode mixedPost-traumat ic stress disorder, chronic 2 Gautam Lee. [address] [facility], [address], [place], [address], [place]. tel: [phone] Preven Meds E&m Estab Pt; 18-3 [facility], [address] [place] [address], [id number], [place] tel:[phone] [facility] drophammer operator irreg. bleeding (chief complaint) Encounter for gynecological examination (general) (routine) without abnormal findingsIrregular intermenstrual bleeding 2 Naveen Christy. [address] [facility], [facility] [address], [place], [place], [id number] , [place]. tel: [phone] [facility] [employer] [address] [place] [address], [id number], [place] tel:[phone] [facility] Bipolar disord, in partial remis, most recent episode mixed 1 Gautam Lee. [address] [facility], [address], [place], [address], [place]. tel: [phone] Offic/outpt E&m Estab Low-mod [facility], [address] [place] [address], [id number], [place] tel:[phone] [facility] *ADD (chief complaint) Impaired concentration 1 Caesar Dobson . [address] [place], [address], [place]. [employer], [address] [place] [address], [id number], [place] tel:[phone] [facility] No Information 1 Humble Smith. [address] [facility], [address], [place], [address], [place]. tel: [phone] Offic/outpt E&m Estab Mod-hi 2 [facility], [address] [place] [address], [id number], [place] tel:[phone] [facility] Right shoulder pain* (chief complaint) Radicular pain in right arm 9 Kenya Cole. [address] [place], [place], [id number] , [place]. tel: [phone] OFFICE/OUTPA TIENT VISIT, [facility], [address] [place] [address], [id number], [place] tel:[phone] [facility] Abdominal pain (chief complaint) Lower abdominal pain 9 Lavonne Braden. [address] [place], [address], [place]. tel: [phone] OFFICE/OUTPA TIENT VISIT, [facility], [facility] [place], [place], [id number], [place] tel:[phone] [facility] enlarged thyroid (chief complaint) Enlarged thyroid 9 Raoul Salguero. [address], [place], [address]. tel: [phone] Family History Family Member Type Diagnosis Age At Onset No Information Immunizations Vaccine Date Status Comments Flucelvax (2 yrs+) refused Source: N ew Immunization Record Tdap administered Source: Other R egistry Payers Payer name Insurance type Covered alliance party ID Authoriza leti(s) [facility] [id number] Wrap 18 [facility] [id number] [facility] [id number] Wrap 18 [facility] [id number] Social History Type Description Quantity Date Captured Comments Alcohol Use Details Unknown Caffeine Use Details Unknown Tobacco Use Status No Information Smoking Status No Information Sex Female Yes - Patient is cur rently Chief Complaint And Reason For Visit No Information Reason For Referral Reason For Referral No Information Plan Of Treatment Date Type Action Status Referral Ordered: Rtu Pg Utrus Fetl Senait Abd;03/12 ordered Referral Ordered: OB US NUCHAL GUNNAR, 1 GEST ordered Referral Ordered: Referrals: [facility]. 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 bleeding Pt had l mp feb 28 which was for 5 days shortly after she bled for another 3 days. she has had no cramping or clots. her menses in jan was nl. she is on bc pills and has missed pills prior to bleeding. *ADD Pt presents to april javier possible ADD diagnosisshe states she believes she has had this for years and was just next dxreports difficulty in school, concentration problems, difficulty staying on task and difficulty completing tasks if there are too many at once Right shoulder pain* - Pt in cli deion today c/o Right sided neck and shoulder pain w/ radiation to the Right UE, sx started ~2 weeks ago w/o precipitating injury or trauma, pain varies from mild to moderate, pt states it "feels like nerve pain , sx have been recurrent for the past weeks- has tried OTC Ibuprofen w/ temporary sx relief- no UE weakness Abdominal pain Onset: 1 Week. P ain scale: 4/10. The location is right lower quadrant and left lower quadrant. The quality of the pain is cramping. The denies aggravating factors. The denies relieving factors. Associated symptoms include nausea. Pertinent negatives include blood in stool, change in appetite, dizziness, fever, flank pain, heartburn, hematuria, vaginal discharge and vomiting. Additional information: reports intermittent bouts constipation and diarrhea accompanied by abdominal bloating. enlarged thyroid Functional Status Date Functional Assessmen t No Information Instructions Date Instruction Additional Infor mation Labs and imaging ord ered. Will f/up w/ abnormal results. Related to Second trimester Vitamin B6 sent. Related to Naus ea/vomiting in pt advised that blee ding was probably due to missed bc plls and advised to take pills as directed and if she has any other Related to Irregular intermenstrual bleeding Medication has been prescribed, please go to the pharmacy and continuous pickling line pickler helper your prescription today, so you can start your treatment right away. Please read patient handout(s). Please return to the clinic or go to the nearest emergency department if condition worsens, changes or does not improveUrine collected at today's visit and will be sent out to the lab for testing. Call our office if you have not heard from us regarding results in 1 week following testing date Related to Lower abdominal pain History of enlarged thyroid, has not followed up with pcp, needs new pcp to get US poss FNAmild sx of anxietyno wt lossdiscussed sx of thyroid storm and going to ER if any develop Related to Enlarged thyroid Assessments Type Assessment Date No Information Patient Care Teams Name Effective Dates (start - stop) Status Members No Information
[2025-01-19 19:57] VITALS: BP 158/107; PULSE 84; RESP 18; TEMP 37.3; O2SAT 98; BMI 28.1
--- NOTE | 2025-01-19 20:13 | ED.C_ITS ---
HPI - Psych 2 General: Chief Complaint: Psychiatric Symptoms Stated Complaint: MHE Time Seen by Provider: 01/19/25 19:57 Source: EMS Mode of arrival: EMS History of Present Illness: 34-year-old female send history of bipol ar along with acute psychosis in the past. Per EMS family and called police and EMS as patient had been acting manic. Patient hears fearful but will not speak. I tried to get her to answer questions and she will not answer any questions nurses tried to ask her as well and she just health at them. Related Data Previous Rx's ?Medication ?Instructions ?Recorded bupropion HCl 300 mg 24 hr tablet, 300 mg PO QAM 30 da ys #30 tabs 07/02/24 extended release lamotrigine 100 mg tablet 100 mg PO BID 30 days #60 ta bs 07/02/24 (Lamictal) lurasidone 60 mg tablet (Latuda) 60 mg PO 1800 #30 tab s 07/02/24 Allergies Allergy/AdvReac Type Severity Reaction Status Date / Time Alpha-Gal Allergy ADR-Vomitin Verified 10/06/24 15:33 (Auussgraj-Gfioa-7,3-Gala g strawberry Allergy Unknown Verified 01/19/25 20:07 [facility] ED 2 PFSH: Medical History (Updated 01/19/25 @ 20:56 by Angel Barcenas MD) Psychiatric care Social History Smoking and tobacco/nicotine status: former use of tobacco/nicotine Quit status (tobacco/nicotine): has quit using Year quit tobacco: 2019 Second hand smoke exposure: No Alcohol intake: former Substance/Drug Use: former Physical Exam 2 Const: COMMON NORMALS: no acute distress and healthy appearing HENMT: COMMON NORMALS: normocephalic and atraumatic HEAD & SCALP: n ormocephalic and atraumatic Eye: COMMON NORMALS: Equal, round and reactive pupils present and EOMs intact bilaterally PUPIL: Yes Equal, round and reactive pupils present Neck/C-Spine: COMMON NORMALS: full ROM and supple Chest: COMMONS NORMALS: normal inspection of the chest Resp: COMMON NORMALS: normal respiratory effort, No retractions, No use of accessory muscles and clear to auscultation bilaterally AUSCULTATION: clear to auscultation bilaterally Cardio: COMMON NORMALS: regular rate, regular rhythm and No murmurs present (Cardio) RATE: regular rate RHYTHM: regular rhythm GI: COMMON NORMALS: Normal to inspection, nondistended, normoactive bowel sounds present, Soft to palpation, non-tender and no masses PALPATION: Yes Soft to palpation Extremity: COMMON NORMALS: normal to inspection and full ROM Neuro: COMMON NORMALS: moves all extremities and no focal motor deficits Psych: COMMON NORMALS: negative for cooperative ATTITUDE: Yes Withdrawn affect present and Yes bizarre Skin: COMMON NORMALS: no rashes or lesions noted and no wounds GENERAL SKIN EXAM: no rashes or lesions noted Course 2 Vital Signs: Vital signs: Vital Signs Temperature 99.2 F 01/19/25 19:57 Pulse Rate 84 01/19/25 19:57 Respiratory Rate 18 01/19/25 19:57 Blood Pressure 158/107 01/19/25 19:57 Pulse Oximetry 98 01/19/25 19:57 Oxygen Delivery Me thod Room Air 01/19/25 19:57 MDM - Psych Medical Decision Making Patient presents here with acute psychosis likely from her bipolar disorder. Patient's vital signs blood work here is all normal. No signs of overdose white count electrolytes are all normal as well. Patient was placed under 96-hour hold I spoke to psychiatrist Dr. Green and will admit. Medical Records I reviewed the patient's medical records. Lab Data I reviewed the patient's lab results. 01/19/25 20:37 01/19/25 20:37 Laboratory Results WBC 9.60 10^3/uL (3.29-11.43) 01/19/25 20:37 RBC 4.18 10^6/uL (3.85-5.65) 01/19/25 20:37 Hgb 13.80 g/dL (11.27-16.99) 01/19/25 20:37 Hct 40.8 % (36-47) 01/19/25 20:37 MCV 97.6 fl (85-98) 01/19/25 20:37 MCH 33.0 pg (27-33) 01/19/25 20:37 MCHC 33.8 g/dL (30-55) 01/19/25 20:37 RDW 12.3 % (12.1-15.1) 01/19/25 20:37 Plt Count 252 10^3/cmm (157-399) 01/19/25 20:37 MPV 10.7 fL (7.4-10.4) H 01/19/25 20:37 Neut % (Auto) 74.4 % 01/19/25 20:37 Lymph % (Auto) 16.3 % 01/19/25 20:37 [place] % (Auto) 7.8 % 01/19/25 20:37 Eos % (Auto) 0.4 % 01/19/25 20:37 Baso % (Auto) 0.7 % 01/19/25 20:37 Neut # (Auto) 7.14 10^3/uL (1.8-7.7) 01/19/25 20:37 Lymph # (Auto) 1.6 10^3/uL (0.8-4.8) 01/19/25 20:37 [place] # (Auto) 0.8 10^3/uL (0.2-0.9) 01/19/25 20:37 Eos # (Auto) 0.0 10^3/uL (0.0-0.8) 01/19/25 20:37 Baso # (Auto) 0.1 10^3/uL (0.0-0.1) 01/19/25 20: Nucleated RBC % (auto) 0 % 01/19/25 20: Nucleated RBCs # 0.0 /100WBC 01/19/25 20:37 Sodium 140 mmol/L (136-145) 01/19/25 20:37 Potassium 3.8 mmol/L (3.5-5.1) 01/19/25 20:37 Chloride 100 mmol/L (98-107) 01/19/25 20:37 Carbon Dioxide 26 mmol/L (22-29) 01/19/25 20:37 Anion Gap 17.8 (5-19) 01/19/25 20:37 BUN 9 mg/dL (6-20) 01/19/25 20:37 Creatinine 0.7 mg/dL (0.5-0.9) 01/19/25 20:37 GFR Calculation 95.8 mL/min (90-130) 01/19/25 20:37 Glucose 103 mg/dL (65-115) 01/19/25 20:37 Calculated Osmolality 289 mOsm/kg (285-295) 01/19/25 20:37 Calcium 9.6 mg/dL (8.5-10.5) 01/19/25 20:37 Total Bilirubin 0.6 mg/dL (0.15-1.2) 01/19/25 20:37 AST 18 U/L (0-32) 01/19/25 20:37 ALT 18 U/L (0-33) 01/19/25 20:37 Alkaline Phosphatase 45 U/L (35-105) 01/19/25 20:37 Total Protein 7.5 g/dL (6.6-8.7) 01/19/25 20:37 Albumin 4.7 g/dL (3.5-5.2) 01/19/25 20:37 Globulin 2.8 g/dL (1.3-4.6) 01/19/25 20:37 HCG, Qual Negative (Negative) 01/19/25 20:37 Salicylates < 0.3 mg/dL (3-10) L 01/19/25 20:37 Acetaminophen < 5.0 ug/mL (10-30) L 01/19/25 20:37 Ethyl Alcohol < 10 mg/dL (0-10) 01/19/25 20:37 No radiology studies performed this visit Discharge Plan Discharge Patient Disposition: Admitted As Inpatient Clinical Impression: Acute psychosis, Bipolar 1 disorder Condition: Stable Coding Level of Care Code ED Animation Camera Operator for Gregg Eid
[2025-01-19 20:44] LABS: Hematocrit 40.8 % (36-47); Hemoglobin 13.80 g/dL (11.27-16.99); Mean Corpuscular HGB Conc 33.8 g/dL (30-55); Mean Corpuscular Hemoglobin 33.0 pg (27-33); Mean Corpuscular Volume 97.6 fl (85-98); Nucleated Red Blood Cells % 0 %; Platelet Count 252 10^3/cmm (157-399); Red Blood Count 4.18 10^6/uL (3.85-5.65); White Blood Count 9.60 10^3/uL (3.29-11.43)
--- NOTE | 2025-01-19 20:48 | PC.NURSE ---
This RN and mobile security specialist Nitza read pt 96 HH rights. Pt verbalized understanding and had no further questions. Provided copy of 96 HH with patient. Calm and cooperative.
[2025-01-19 21:00] LABS: Alanine Aminotransferase 18 U/L (0-33); Albumin Level 4.7 g/dL (3.5-5.2); Alkaline Phosphatase 45 U/L (35-105); Aspartate Amino Transferase 18 U/L (0-32); Blood Urea Nitrogen 9 mg/dL (6-20); Calcium 9.6 mg/dL (8.5-10.5); Carbon Dioxide 26 mmol/L (22-29); Chloride 100 mmol/L (98-107); Globulin 2.8 g/dL (1.3-4.6); Glucose 103 mg/dL (65-115); Osmolality Calculated 289 mOsm/kg (285-295); Sodium 140 mmol/L (136-145); Total Protein 7.5 g/dL (6.6-8.7)
[2025-01-19 21:05] LABS: Acetaminophen < 5.0 ug/mL (10-30); Alcohol Level < 10 mg/dL (0-10); Salicylate < 0.3 mg/dL (3-10)
[2025-01-19 21:06] LABS: Anion Gap 17.8 (5-19); Potassium 3.8 mmol/L (3.5-5.1)
[2025-01-19 21:10] LABS: HCG, Serum Qual Negative (Negative)
[2025-01-19 22:06] VITALS: BP 148/101; PULSE 82; O2SAT 99
[2025-01-19 22:08] VITALS: PULSE 78; RESP 17; TEMP 36.8; O2SAT 100
--- NOTE | 2025-01-19 22:41 | PC.NURSE ---
upon admission this DIRECTOR STRATEGIC ACCOUNT MANAGEMENT did admit paperwork but would not sit still for bp to be taken.
[2025-01-20 06:00] VITALS: BP 144/78; PULSE 97; RESP 15; TEMP 36.7; O2SAT 100
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
[2025-01-20 10:52] LABS: PCP Screen Urine Negative (Negative)
[2025-01-20 14:00] VITALS: BP 129/90; PULSE 72; RESP 18; TEMP 36.9; O2SAT 99
--- NOTE | 2025-01-20 19:46 | PC.NURSE ---
vs not collected pt yelled and refused resp 18 nurse notified
[2025-01-20] MEDS: diphenhydrAMINE 50 mg/mL SDV 1mL IM (20:00)
[2025-01-20] MEDS: haloperidol inj 5 mg/mL INJ 1 mL IM (20:00)
[2025-01-20] MEDS: LORazepam 2 mg/mL INJ 1 mL IM (20:00)
--- NOTE | 2025-01-20 20:24 | PC.NURSE ---
pt was laying in bed and began to yell repeatedly. This HVAC SPECIALIST, PARTNERSHIP MANAGER Negra, and HS Joanne went into room and pt was laying in bed yelling that she was scared and she needed to leave and would scream any time anyone would try to talk to her. Pt came to nurses station to get meds and began to stomp the floor and swing her arms all around while continuing to yell. Pt then began to run [place] and security followed. Pt was put in the restraint bed at 195 and vs were taken at that time.
--- NOTE | 2025-01-20 20:30 | PC.NURSE ---
PATIENT BEHAVIOR PATIENT CAME UP TO THE DESK AT 1900 WANTING TO SEE THE DOCTOR, STATED SHE WAS HAVING BIG ANXIETY . PATIENT WAS REMINDED THE SHE WAS JUST GIVEN ANXIETY MED, (ZYPREXA ZYDIS), AND THAT SHE NEEDED TO GO LAY DOWN AND LET IT WORK. BUT MY HEAD HURTS PATIENT WAS OFFERED MOTRIN 600MG, BUT WOULD NOT TAKE IT. SHE WAS THRASHING AROUND TALKING IN CIRCLES THEN WOULD RUN TO HER ROOM. PATIENT BEGAN SCREAMING AND YELLING HELLLLP ME! WHILE STAFF WAS IN ANOTHER PATIENTS ROOM. UNIT STAFF WELL STEAM HEATING INSTALLER IRAIS MARTIN WENT INTO THE PATIENTS ROOM AND ATTEMPTED TO CALM PATIENT AND TALK TO HER. PATIENT BECAME RESISTANT, AND JUMPED UP AND WENT TO THE NURSES DESK.SCREAMING THERE'S A DEMON AFTER ME, THERE'S DEMONS ALL AROUND TRYING TO GET ME. PLEASE GOD GET THE DEMONS AWAY FROM ME. PATIENT GRABBED ONTO STEAM HEATING INSTALLER ARM AND STARTED JUMPING UP AND DOWN PATIENT WAS TOLD TO STOP JUMPING. PATIENT THEN STARTED THRASHING AROUND AGAIN. SECURITY WAS ALREADY ON THE UNIT . AT 1949, THIS NURSE WENT TO THE MED ROOM TO PULL A B52 TO ADMINISTER TO THIS PATIENT. CODE 10 CALLED AT 1955, PATIENT PLACED ON RESTRAINT BED AT 1958. AT 1999, B52 CONTAINING BENADRYL 50MG IM, HALDOL 5MG IM/ATIVAN 2MG IM WERE GIVEN BY THIS NURSE AND KENIA MARTIN. PATIENT WAS WHEELED TO RESTRAINT ROOM WHERE VITALS WERE TAKEN AND 1:1 SITTER PLACED AT SIDE. CRISTIN FOFANA RN WERE NOTIFIED.
--- NOTE | 2025-01-20 20:49 | PC.NURSE ---
Pt was down in her room screaming and thrashing around. She was stating that she had a ORTEGA and and that there was demons in her room. [facility] convinced her to walk down to the nurses station and get something for her ORTEGA. She walked down took her IBU and began screaming again for staff to not touch her and more talk about demons and God. Pt then took off running and Security JR reports that she jumped over the table in the dayroom. She then took off running down the eli then jumped into the [facility] door. She came running back towards the nurses station but stopped and jumped on security JR. She jumped down and then ran to the nurses station and dropped in the floor. She cont to scream and thrash around. At this time it was noted blood on her teeth and a a bruise with a small superficial cut on her chin. Pt cont to scream and thrash as the restraint bed was brought around. At 1949 she was placed in restraints and at 2004 she was in the seclusion room. At this time pt had to have her head and shoulders manually restrained due to banging her head off the bed. This nurse checked her teeth and didn't notice any broken. She slowly calmed down and staff was able to step out of the room and 1:1 sitter was outside the door. Dr. Green was notified and he came in and called Dr. Rowley up to exam pt mouth. Dr. Rowley stated to call and let him know if pt had any complaints later on or we noticed an increase in swelling. Pt is laying in restraint bed with eyes closed and occasionally moves her limbs around. Will cont to observe.
--- NOTE | 2025-01-20 21:36 | CTR_ITS ---
PROCEDURE INFORMATION: Exam: CT Head Without Contrast Exam date and time: 01/20/2025 9:58 PM Age: 34 years old Clinical indication: Injury or trauma; Other: Ran into a door; Blunt trauma (contusions or hematomas); Additional info: AMS TECHNIQUE: Imaging protocol: Computed tomography of the head without contrast. Radiation optimization: All CT scans at this facility use at least one of these dose optimization techniques: automated exposure control; mA and/or kV adjustment per patient size (includes targeted exams where dose is matched to clinical indication); or iterative reconstruction. COMPARISON: CT facial bones wo con* [id number] 01/20/2025 9:58 PM RADIATION DOSE METRICS: Total DLP (mGy-cm): 754.4 FINDINGS: Brain: No acute infarction, hemorrhage, mass, or extra-axial fluid collection is identified. No midline shift. Cerebral ventricles: No hydrocephalus. Paranasal sinuses: Paranasal sinuses are grossly clear. Mastoid air cells: Mastoid air cells are grossly clear. Bones: Calvarium appears intact. Soft tissues: Unremarkable. CT/CT head wo con* [id number] IMPRESSION: No acute intracranial abnormality.
--- NOTE | 2025-01-20 21:37 | CTR_ITS ---
PROCEDURE INFORMATION: Exam: CT Cervical Spine Without Contrast Exam date and time: 01/20/2025 9:58 PM Age: 34 years old Clinical indication: Injury or trauma; Other: Ran into door; Blunt trauma; Additional info: Ran face first in to door TECHNIQUE: Imaging protocol: Computed tomography of the cervical spine without contrast. Radiation optimization: All CT scans at this facility use at least one of these dose optimization techniques: automated exposure control; mA and/or kV adjustment per patient size (includes targeted exams where dose is matched to clinical indication); or iterative reconstruction. COMPARISON: CT cervical spin wo con* [id number] 01/20/2025 9:58 PM RADIATION DOSE METRICS: Total DLP (mGy-cm): 212.5 FINDINGS: Bones: No acute fracture. Normal alignment. No significant disc herniation. No significant spinal canal stenosis. No high-grade neural foraminal narrowing. Lungs: Lung apices are unremarkable. Soft tissues: Unremarkable. CT/CT cervical spin wo con* [id number] IMPRESSION: No acute cervical spine fracture.
--- NOTE | 2025-01-20 21:39 | PM.CONSULT ---
Providers/Reason For Consult Consulting Physician/Specialty*: Psychiatry Reason for Consult*: Ran into metal door Attending Physician: Johnathon Green MD Primary Care Provider: Yraelis Dan DO History of Present Illness History of Present Illness Nancy Stroud is a 34 year old female admitted to neuropsychiatric unit for concern for bipolar disorder, patient according to nursing staff was running down the hallway, and ran face, and then fell to the ground, she was found to be screaming and thrashing, code 10 was called, she was found to have blood around her teeth, I was called to evaluate patient, currently patient is seen, she is alert to person, not to place, to time, she can follow commands, she was able to lift me look inside her mouth, she has bitten her inner lip, bleeding has mostly resolved, no significant lip swelling, I cannot see any bruising of her tongue or any laceration of her tongue, her central incisors look intact, she does not open her mouth wider for me to look at the rest of her dentition due to agitation. She had no tenderness along her chin or her jaw. She has no tenderness along the TMJ joint bilaterally, no cervical tenderness, no paracervical tenderness, neck good range of motion, no palpable abnormalities, she moves bilateral hands, bilateral shoulders, no other gross deformities noted Medications/Allergies Home Medications ?Medication ?Instructions ?Recorded ?Confirmed ?Last Taken ?Type lurasidone 60 mg tablet (Latuda) 60 mg PO 1800 #30 tabs 07/02/24 01/19/25 Unknown Rx bupropion HCl 300 mg 24 hr tablet, 300 mg PO DAILY 01/19/25 01/19/25 Unknown History extended release drospirenone (contraceptive) 4 mg 4 mg PO DAILY 01/19/25 01/19/25 Unknown History (28) tablet (Slynd) lamotrigine 100 mg tablet 100 mg PO BID 01/19/25 01/19/25 Unknown History (Lamictal) Allergies Allergy/AdvReac Type Severity Reaction Status Date / Time Alpha-Gal Allergy ADR-Vomitin Verified 10/06/24 15:33 (Qzbqzibfw-Oybjd-2,3-Gala g strawberry Allergy Unknown Verified 01/19/25 20:07 Current Medications Generic Name Dose Route Start Last Admin Trade Name Freq PRN Reason Stop Dose Admin Bupropion HCl 300 mg 01/20/25 09:00 01/20/25 08:28 Bupropion Xl (24 Hr) 300 Mg Tablet PO 300 mg DAILY AIMEE Administration Lamotrigine 100 mg 01/20/25 09:00 01/20/25 17:26 Lamotrigine 100 Mg Tablet PO 100 mg BID AIMEE Administration Lurasidone HCl 60 mg 01/20/25 18:00 01/20/25 17:26 Lurasidone 20 Mg Tablet PO 60 mg 1800 AIMEE Administration Olanzapine 5 mg 01/19/25 22:08 01/20/25 18:43 Olanzapine 5 Mg Odt PO 5 mg Q4H PRN Administration Agitation/Psychosis Paliperidone 3 mg 01/20/25 16:50 01/20/25 17:27 Paliperidone Er 3 Mg Tablet PO 3 mg DAILY AIMEE Administration PFSH Acute PFSH: Medical History Psychiatric care Social History Smoking and tobacco/nicotine status: former use of tobacco/nicotine Quit status (tobacco/nicotine): has quit using Year quit tobacco: 2019 Second hand smoke exposure: No Alcohol intake: former Substance/Drug Use: former Vitals/I&O/Wt Last Vital Signs Temp 98.5 F 01/20/25 14:00 Pulse 72 01/20/25 14:00 Resp 18 01/20/25 14:00 BP 129/90 01/20/25 14:00 Pulse Ox 99 01/20/25 14:00 O2 Del Method Room Air 01/20/25 06:00 Weight last 48 hrs Weight 69.853 kg Physical Exam Const: COMMON NORMALS: no acute distress ORIENTATION/CONSCIOUSNESS: Yes awake and Yes oriented to person; not oriented to place and not oriented to time Eye: COMMON NORMALS: Equal, round and reactive pupils present and EOMs intact bilaterally PUPIL: Yes Equal, round and reactive pupils present Neck/C-Spine: COMMON NORMALS: full ROM and no lymphadenopathy CERVICAL SPINE: Yes cervical ROM normal, No cervical ROM abnormal, No Cervical spine tenderness and No Paracervical muscle tenderness Resp: COMMON NORMALS: normal respiratory effort, No retractions, No use of accessory muscles and clear to auscultation bilaterally AUSCULTATION: clear to auscultation bilaterally Cardio: COMMON NORMALS: regular rate, regular rhythm, S1 normal heart sound present and S2 normal heart sound present RATE: regular rate RHYTHM: regular rhythm HEART SOUNDS: S1 normal heart sound present and S2 normal heart sound present GI: COMMON NORMALS: Normal to inspection, nondistended, normoactive bowel sounds present and non-tender : COMMON NORMALS: Yes no CVA tenderness BLADDER/KIDNEY EXAM: Yes no CVA tenderness Back/Pelvis: COMMON NORMALS: no CVA tenderness Extremity: COMMON NORMALS: no calf tenderness and no pedal edema Neuro: SENSORIUM/ORIENTATION: Yes oriented to person, No oriented to place and No oriented to time OTHER: Moves bilateral upper and lower extremities Data 01/19/25 20:37 01/19/25 20:37 A&P Assessment and plan 1. Acute psychosis: Plan: - Will continue to monitor clinically - Neurochecks - CT cervical spine, CT head, CT facial's bone - Will have nursing staff monitor her closely if she has any pain complaints will certainly consider further evaluation for any other pain complaints PDMP PDMP Reviewed: Not Reviewed Consult Attestations Medical Necessity Statement: Acute psychosis Diagnoses Acute psychosis F23
--- NOTE | 2025-01-20 21:41 | CTR_ITS ---
PROCEDURE INFORMATION: Exam: CT Maxillofacial Without Contrast Exam date and time: 01/20/2025 9:58 PM Age: 34 years old Clinical indication: Injury or trauma; Other: Ran into door; Blunt trauma (contusions or hematomas); Other: Chin; Additional info: Ran face first in to metal door TECHNIQUE: Imaging protocol: Computed tomography of the face without contrast. Radiation optimization: All CT scans at this facility use at least one of these dose optimization techniques: automated exposure control; mA and/or kV adjustment per patient size (includes targeted exams where dose is matched to clinical indication); or iterative reconstruction. COMPARISON: CT head wo con* [id number] 01/20/2025 9:58 PM RADIATION DOSE METRICS: Total DLP (mGy-cm): 1124.3 FINDINGS: Paranasal sinuses: No air-fluid levels. Orbital cavities: Orbits are normal. Globes are unremarkable. Bones: No acute fracture. Soft tissues: Mild soft tissue swelling of the anterior palma, but no focal hematoma. CT/CT facial bones wo con* [id number] IMPRESSION: No acute maxillofacial fracture.
--- NOTE | 2025-01-20 21:41 | PC.NURSE ---
Left leg released at 2102 Right arm released at 2116 Lt arm and leg released at 2134 Pt was brought out of seclusion and walked to her room. She was sleeping on the restraint bed, but could still be easily aroused. She is being taken to CT for her head, ordered by Dr. Rowley.
--- NOTE | 2025-01-20 21:55 | PC.NURSE ---
HEAD CT PATIENT TAKEN TO CT BY SECURITY, DRYWALL METAL STUD WORKER, AND NATALYA ARTHUR AT THIS TIME.
--- NOTE | 2025-01-20 22:10 | PC.NURSE ---
RETURN TO UNIT PATIENT BACK TO UNIT AT THIS TIME AFTER CT SCAN.
--- NOTE | 2025-01-21 06:26 | PC.NURSE ---
vs not collected resp 16 nurse notified
--- NOTE | 2025-01-21 08:11 | P.NPUPN_ITS ---
Subjective NPU 2 Subjective: Patient presents today reporting that she is doing better than last night. We discussed her episode yesterday where she was climbing on tables or jumping over tables and got injured. She had no explanation for why she behaved the way she did. We discussed the risks, benefits and alternatives of the Invega which she did take and she denied any specific issues at this time she denied any side effects to her medication we discussed continuing to work to get her verónica under control. Mental Status Exam 2 MSE Comments: This is an overweight versus obese female in hospital scrubs with adequate grooming and intense eye contact. No abnormal movements except for mild psychomotor agitation. Somewhat cooperative with exam and mild distress. Speech was slightly increased rate and volume but not pressured. Mood described as all right, affect elated. Thought process linear. Thought content: Patient denied suicidal or homicidal ideation, there were no delusions reported but clear grandiose and possible paranoid and persecutory delusions noted, she did not report any auditory or visual hallucinations but seem to be suggesting some things that sound like perceptual disturbances. Attention and concentration were limited and memory appeared unreliable but none were formally tested. She is alert and oriented times person and place. Insight, judgment and impulse control are impaired. Vitals/I&O/Wt Last Vital Signs Temp 98.5 F 01/20/25 14:00 Pulse 72 01/20/25 14:00 Resp 18 01/20/25 14:00 BP 129/90 01/20/25 14:00 Pulse Ox 99 01/20/25 14:00 O2 Del Method Room Air 01/20/25 06:00 Weight last 48 hrs Weight 69.853 kg Data NPU 01/19/25 20:37 01/19/25 20:37 A&P Assessment and plan 1. Bipolar 1 disorder: 2. Hypomanic episode: Plan: This is a 34-year-old female with a history of type I bipolar disorder previously admitted with mixed mood symptoms as well as a hypomanic episode not appearing to psychotic requesting medication for mood stabilization who presents this time with concern for verónica, aggression and lethality which she is reporting that she has a different version of the story but was unable to articulate it with any significant clarity.. 1. Continue current medication. Will consider changes Started Invega 3 mg p.o. daily. 2. Continue every 15 minute checks for safety. 3. Encourage individual, group and milieu therapy. 4. Recommend sober living treatment after discharge to the highest level care to which she is willing to commit. 5. Obtain collateral information. 6. Observe against the backdrop of the 96-hour hold. PDMP PDMP Reviewed: Not Reviewed Involuntary Hold Information 2 Hold Status: Legal Status: 96 Hour Hold Date/Time Hold Expires: 1 03/28/24@20:30 96 Hour Hold: 96 Hour Involuntary Admission: No Attestations NPU 2 Medical Necessity Statement*: Inpatient hospitalization is medically necessary and the clinically appropriate intervention at this time.? We will monitor/initiate medications and make changes as indicated. The patient?s likely length of stay 2-4 days. Coding Level of Care Code Acute Code for [facility] Fwd Diagnoses Bipolar 1 disorder F31.9 Hypomanic episode F30.8
[2025-01-21 12:00] VITALS: BP 129/90; PULSE 72; RESP 18; TEMP 36.9
[2025-01-21 13:40] VITALS: BP 113/72; PULSE 106; RESP 16; TEMP 37; O2SAT 100
[2025-01-21 16:00] VITALS: BP 113/72; PULSE 106; RESP 16; TEMP 37
--- NOTE | 2025-01-21 18:22 | P.PN_ITS ---
Subjective 2 Subjective: Patient seen this evening on the psychiatric floor She will was seen yesterday upon consult to the hospitalist team following reported aggressive episodes that resulted in patient hitting her face on some hard surfaces. Imaging results were all negative. Patient denies any pain or swelling or cuts on the face or head at this time. She reports being back to her usual activities, and actually asking about when she might possibly go home. Vitals/I&O/Wt Last Vital Signs Temp 98.6 F 01/21/25 13:40 Pulse 106 H 01/21/25 13:40 Resp 16 01/21/25 13:40 BP 113/72 01/21/25 13:40 Pulse Ox 100 01/21/25 13:40 O2 Del Method Room Air 01/21/25 13:40 Weight last 48 hrs Weight 69.853 kg Physical Exam 2 Narrative: General: Awake and alert. No obvious respiratory distress. Neuro/Psych: Cooperative. Oriented x 3 Chest/Resp: No obvious respiratory distress. Face: No obvious bruises or growths appreciated. Head: Atraumatic. CVS: Rhythm: Regular heart rate and rhythm. Extremities: Bilateral equal pulses. No obvious pitting pedal edema. Data 01/19/25 20:37 01/19/25 20:37 CT Head: Radiologist's impression: IMPRESSION: No acute fracture CT Neck: Radiologist's impression: IMPRESSION: No acute cervical spine fracture. CT Face: Radiologist's impression: IMPRESSION: No acute maxillofacial fracture. A&P Assessment and plan 1. Acute psychosis: 2. Facial trauma: Plan: 1. Reported facial trauma: No evidence or sign of bruises or skin injuries or bruises noted on the face or neck. No obvious bony injuries noted upon review of the CT results. Continued empiric treatment recommended. Otherwise, no further medical treatment needed in this case. 2. Acute psychosis: Otherwise stable. Defer to the psychiatrist or behavioral health team for further evaluation and treatment of this. Hospitalist team will sign off at this time. PDMP PDMP Reviewed: Not Reviewed Attestations 2 Medical Necessity Statement*: Medically stable patient. Nothing new or otherwise relevant that hospitalist is deemed needed at this time. Patient is medically stable, and does not require any further workup or follow- up. No further recommendations at this time. Therefore, we will sign out. Call the hospitalist team again if any more help is needed. Coding Level of Care Code Acute Code for [facility] Fwd Diagnoses Acute psychosis F23 Facial trauma S09.93XA
[2025-01-21 19:51] VITALS: BP 136/93; PULSE 112; RESP 18; TEMP 36.4; O2SAT 100
[2025-01-22 08:00] VITALS: BP 136/93; PULSE 112; RESP 18; TEMP 36.4
[2025-01-22 12:00] VITALS: BP 136/93; PULSE 112; RESP 18; TEMP 36.4
[2025-01-22 13:51] VITALS: BP 124/83; PULSE 107; RESP 16; TEMP 36.9; O2SAT 99
[2025-01-22 16:00] VITALS: BP 124/83; PULSE 107; RESP 16; TEMP 36.9
[2025-01-22 20:00] VITALS: BP 128/84; PULSE 109; RESP 20; TEMP 36.8
--- NOTE | 2025-01-22 20:22 | P.NPUPN_ITS ---
Subjective NPU 2 Subjective: Patient presented today reporting that she is doing okay. She reported feeling less all over the place. She endorsed doing okay with the medication but she did not confirm the suspicions of her family that maybe she had not been taking her medication. We discussed that the medications seem to be working and that he wanted to increase the Invega after discussion of the risks, benefits and alternatives she understood and agreed to proceed as documented in this note. She denied any clear side effects to the medication. Mental Status Exam 2 MSE Comments: This is an overweight versus obese female in hospital scrubs with adequate grooming and intense eye contact. No abnormal movements except for mild psychomotor agitation. Somewhat cooperative with exam and mild distress. Speech was slightly increased rate and volume but not pressured. Mood described as okay, affect less expansive. Thought process linear. Thought content: Patient denied suicidal or homicidal ideation, there were no delusions reported but clear grandiose and possible paranoid and persecutory delusions noted, she did not report any auditory or visual hallucinations but seem to be suggesting some things that sound like perceptual disturbances. Attention and concentration were limited and memory appeared unreliable but none were formally tested. She is alert and oriented times person and place. Insight, judgment and impulse control are impaired. Vitals/I&O/Wt Last Vital Signs Temp 98.4 F 01/22/25 16:00 Pulse 107 H 01/22/25 16:00 Resp 16 01/22/25 16:00 BP 124/83 01/22/25 16:00 Pulse Ox 99 01/22/25 13:51 O2 Del Method Room Air 01/22/25 13:51 Data NPU 01/19/25 20:37 01/19/25 20:37 A&P Assessment and plan 1. Bipolar 1 disorder: 2. Hypomanic episode: Plan: This is a 34-year-old female with a history of type I bipolar disorder previously admitted with mixed mood symptoms as well as a hypomanic episode not appearing to psychotic requesting medication for mood stabilization who presents this time with concern for verónica, aggression and lethality which she is reporting that she has a different version of the story but was unable to articulate it with any significant clarity.. 1. Continue current medication. Will consider changes Started Invega 3 mg p.o. daily. Increase to 6 mg p.o. daily. 2. Continue every 15 minute checks for safety. 3. Encourage individual, group and milieu therapy. 4. Recommend sober living treatment after discharge to the highest level care to which she is willing to commit. 5. Obtain collateral information. 6. Observe against the backdrop of the 96-hour hold. PDMP PDMP Reviewed: Not Reviewed Involuntary Hold Information 2 Hold Status: Legal Status: 96 Hour Hold Date/Time Hold Expires: 1 03/28/24@20:30 96 Hour Hold: 96 Hour Involuntary Admission: No Attestations NPU 2 Medical Necessity Statement*: Inpatient hospitalization is medically necessary and the clinically appropriate intervention at this time.? We will monitor/initiate medications and make changes as indicated. The patient?s likely length of stay 2-4 days. Coding Level of Care Code Acute Code for [facility] Fwd Diagnoses Bipolar 1 disorder F31.9 Hypomanic episode F30.8
[2025-01-22 20:43] VITALS: BP 128/84; PULSE 109; RESP 20; TEMP 36.8; O2SAT 98
[2025-01-23] VITALS: BP 128/84; PULSE 109; RESP 20; TEMP 36.8
[2025-01-23 05:40] VITALS: BP 114/80; PULSE 110; RESP 18; TEMP 36.6; O2SAT 100
--- NOTE | 2025-01-23 07:51 | W.PM.NPUPNS ---
Subjective NPU Subjective: Patient presented today reporting that she is feeling better overall. She appeared more calm and less activated per staff reports and direct observation. She expressed frustration at the fact that now she is feeling more calm,. She would like to leave sooner rather than later we discussed the fact that we need to figure out what to do with her other medications as well as make sure that this is a clear and steady change. We also discussed concerns about her being inconsistent with her medication and the possibility that the long-acting injectable version of the Invega is most appropriate. She denied any side effects to the medication. Mental Status Exam MSE Comments: This is an overweight versus obese female in hospital scrubs with adequate grooming and intense eye contact. No abnormal movements except for mild psychomotor agitation. Somewhat cooperative with exam and mild distress. Speech was slightly increased rate and volume but not pressured. Mood described as okay, affect more calm. Thought process linear. Thought content: Patient denied suicidal or homicidal ideation, there were no delusions reported but less signs of grandiose and possible paranoid and persecutory delusions noted, she did not report any auditory or visual hallucinations but seem to be suggesting some things that sound like perceptual disturbances. Attention and concentration were limited and memory appeared more reliable but none were formally tested. She is alert and oriented times person and place. Insight, judgment and impulse control are impaired. Vitals/I&O/Wt Last Vital Signs Temp 97.9 F 01/23/25 05:40 Pulse 110 H 01/23/25 05:40 Resp 18 01/23/25 05:40 BP 114/80 01/23/25 05:40 Pulse Ox 100 01/23/25 05:40 O2 Del Method Room Air 01/23/25 05:40 Data NPU 01/19/25 20:37 01/19/25 20:37 A&P Assessment and plan 1. Bipolar 1 disorder: 2. Hypomanic episode: Plan: This is a 34-year-old female with a history of type I bipolar disorder previously admitted with mixed mood symptoms as well as a hypomanic episode not appearing to psychotic requesting medication for mood stabilization who presents this time with concern for verónica, aggression and lethality which she is reporting that she has a different version of the story but was unable to articulate it with any significant clarity.. 1. Continue current medication. Will consider changes Started Invega 3 mg p.o. daily. Increased to 6 mg p.o. daily. 2. Continue every 15 minute checks for safety. 3. Encourage individual, group and milieu therapy. 4. Recommend sober living treatment after discharge to the highest level care to which she is willing to commit. 5. Obtain collateral information. 6. Observe against the backdrop of the 96-hour hold. PDMP PDMP Reviewed: Not Reviewed Involuntary Hold Information Hold Status: Legal Status: 96 Hour Hold Date/Time Hold Expires: 01/26/25@20:30 96 Hour Hold: 96 Hour Involuntary Admission: No Attestations NPU Medical Necessity Statement*: Inpatient hospitalization is medically necessary and the clinically appropriate intervention at this time.? We will monitor/initiate medications and make changes as indicated. The patient?s likely length of stay 2-3 days. Coding Level of Care Code Acute Code for [facility] Fwd Diagnoses Bipolar 1 disorder F31.9 Hypomanic episode F30.8
[2025-01-23 08:00] VITALS: BP 114/80; PULSE 110; RESP 18; TEMP 36.6
[2025-01-23 13:43] VITALS: BP 114/78; PULSE 116; RESP 16; TEMP 36.5; O2SAT 95
[2025-01-23 20:12] VITALS: BP 109/68; PULSE 102; RESP 18; TEMP 36.8; O2SAT 98
[2025-01-24 04:50] VITALS: BP 115/69; PULSE 115; RESP 18; TEMP 36.4; O2SAT 98
--- NOTE | 2025-01-24 11:31 | P.NPUPN_ITS ---
Subjective NPU 2 Subjective: Patient presented today reporting that she is starting to feel better. She was at first resistant to the idea that the medication has made a difference and we talked about leaning towards the long-acting injectable given her struggles with taking medications and adherence. We talked about possibly getting her off of some of the other medication and focusing on the Invega as her primary antipsychotic/mood stabilizer. She denied any side effects to the medication. Mental Status Exam 2 MSE Comments: This is an overweight versus obese female in hospital scrubs with adequate grooming and intense eye contact. No abnormal movements except for mild psychomotor agitation. Somewhat cooperative with exam and mild distress. Speech was slightly increased rate and volume but not pressured. Mood described as okay, affect more calm. Thought process linear. Thought content: Patient denied suicidal or homicidal ideation, there were no delusions reported but less signs of grandiose and possible paranoid and persecutory delusions noted, she did not report any auditory or visual hallucinations but seem to be suggesting some things that sound like perceptual disturbances. Attention and concentration were limited and memory appeared more reliable but none were formally tested. She is alert and oriented times person and place. Insight, judgment and impulse control are impaired. Vitals/I&O/Wt Last Vital Signs Temp 97.5 F L 01/24/25 04:50 Pulse 115 H 01/24/25 04:50 Resp 18 01/24/25 04:50 BP 115/69 01/24/25 04:50 Pulse Ox 98 01/24/25 04:50 O2 Del Method Room Air 01/24/25 04:50 Data NPU 01/19/25 20:37 01/19/25 20:37 A&P Assessment and plan 1. Bipolar 1 disorder: 2. Hypomanic episode: Plan: This is a 34-year-old female with a history of type I bipolar disorder previously admitted with mixed mood symptoms as well as a hypomanic episode not appearing to psychotic requesting medication for mood stabilization who presents this time with concern for verónica, aggression and lethality which she is reporting that she has a different version of the story but was unable to articulate it with any significant clarity.. 1. Continue current medication. Will consider changes Started Invega 3 mg p.o. daily. Increased to 6 mg p.o. daily. 2. Continue every 15 minute checks for safety. 3. Encourage individual, group and milieu therapy. 4. Recommend sober living treatment after discharge to the highest level care to which she is willing to commit. 5. Obtain collateral information. 6. Observe against the backdrop of the 96-hour hold. PDMP PDMP Reviewed: Not Reviewed Involuntary Hold Information 2 Hold Status: Legal Status: 96 Hour Hold Date/Time Hold Expires: 1 03/28/24@20:30 96 Hour Hold: 96 Hour Involuntary Admission: No Attestations NPU 2 Medical Necessity Statement*: Inpatient hospitalization is medically necessary and the clinically appropriate intervention at this time.? We will monitor/initiate medications and make changes as indicated. The patient?s likely length of stay 2-3 days. Coding Level of Care Code Acute Code for [facility] Fwd Diagnoses Bipolar 1 disorder F31.9 Hypomanic episode F30.8
[2025-01-24 14:00] VITALS: BP 117/85; PULSE 98; RESP 16; TEMP 36.7; O2SAT 99
[2025-01-24 20:00] VITALS: BMI 28.9
[2025-01-24 20:35] VITALS: BP 124/87; PULSE 109; RESP 18; TEMP 36.8; O2SAT 98
[2025-01-25 06:00] VITALS: BP 119/77; PULSE 104; RESP 19; TEMP 36.4; O2SAT 99
--- NOTE | 2025-01-25 09:50 | PC.NURSE ---
Dr. Green gave verbal order to DC Machelle, Start Invega 234mg IM today.
[2025-01-25] MEDS: paliperidone palmitate 234 mg Syringe IM (10:39)
--- NOTE | 2025-01-25 10:41 | PC.NURSE ---
Invega inj given
[2025-01-25 14:00] VITALS: BP 120/79; PULSE 105; RESP 16; TEMP 36.8; O2SAT 99
--- NOTE | 2025-01-25 18:12 | P.NPUPN_ITS ---
Subjective NPU 2 Subjective: Patient presented today reporting that things are going okay. We discussed the risks, benefits and alternatives of the Invega Sustenna injection and utilizing that is her main mood stabilizer. We discussed discontinuation of the Latuda as well and she understood and agreed to proceed as documented in this note. We discussed Dr. Freedman coming tomorrow and the tentative plan for discharge. She denied any side effects to the medication. Mental Status Exam 2 MSE Comments: This is an overweight versus obese female in hospital scrubs with adequate grooming and intense eye contact. No abnormal movements except for mild psychomotor agitation. Somewhat cooperative with exam and mild distress. Speech was slightly increased rate and volume but not pressured. Mood described as okay, affect more calm. Thought process linear. Thought content: Patient denied suicidal or homicidal ideation, there were no delusions reported but less signs of grandiose and possible paranoid and persecutory delusions noted, she did not report any auditory or visual hallucinations but seem to be suggesting some things that sound like perceptual disturbances. Attention and concentration were limited and memory appeared more reliable but none were formally tested. She is alert and oriented times person and place. Insight, judgment and impulse control are impaired. Vitals/I&O/Wt Last Vital Signs Temp 97.9 F 01/25/25 20:09 Pulse 99 01/25/25 20:09 Resp 18 01/25/25 20:09 BP 123/81 01/25/25 20:09 Pulse Ox 98 01/25/25 20:09 O2 Del Method Room Air 01/25/25 20:09 Weight last 48 hrs Weight 71.781 kg Data NPU 01/19/25 20:37 01/19/25 20:37 A&P Assessment and plan 1. Bipolar 1 disorder: 2. Hypomanic episode: Plan: This is a 34-year-old female with a history of type I bipolar disorder previously admitted with mixed mood symptoms as well as a hypomanic episode not appearing to psychotic requesting medication for mood stabilization who presents this time with concern for verónica, aggression and lethality which she is reporting that she has a different version of the story but was unable to articulate it with any significant clarity.. 1. Continue current medication. Will consider changes Started Invega 3 mg p.o. daily. Increased to 6 mg p.o. daily. Initiate Invega injection 234 mg IM to deltoid loading dose. Next dose in 4 to 7 days on a 156 mg IM to deltoid. Discontinue Latuda. 2. Continue every 15 minute checks for safety. 3. Encourage individual, group and milieu therapy. 4. Recommend sober living treatment after discharge to the highest level care to which she is willing to commit. 5. Obtain collateral information. 6. Observe against the backdrop of the 96-hour hold. Tentative plan for discharge tomorrow. PDMP PDMP Reviewed: Not Reviewed Involuntary Hold Information 2 Hold Status: Legal Status: 96 Hour Hold Date/Time Hold Expires: 1 03/28/24@20:30 96 Hour Hold: 96 Hour Involuntary Admission: No Attestations NPU 2 Medical Necessity Statement*: Inpatient hospitalization is medically necessary and the clinically appropriate intervention at this time.? We will monitor/initiate medications and make changes as indicated. The patient?s likely length of stay 1-2 days. Coding Level of Care Code Acute Code for [facility] Fwd Diagnoses Bipolar 1 disorder F31.9 Hypomanic episode F30.8
[2025-01-25 20:09] VITALS: BP 123/81; PULSE 99; RESP 18; TEMP 36.6; O2SAT 98
[2025-01-26 06:00] VITALS: BP 105/71; PULSE 94; RESP 18; TEMP 36.5; O2SAT 99
[2025-01-26 13:57] VITALS: BP 118/66; PULSE 106; RESP 16; TEMP 36.6; O2SAT 97
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
[2025-01-26 14:51] VITALS: BP 118/66; PULSE 16; RESP 106; TEMP 36.6; O2SAT 97
== END 2025-01-26 15:28 | disposition home or self-care (01) | DRG 753 ==
LOC: ER 20:56 → NP 21:18
PROVIDERS: Admitting Provider Psychiatry & Neurology Psychiatry; Emergency Provider Emergency Medicine; PCP Family Medicine; Visit Provider Psychiatry & Neurology Psychiatry
DX: F31.9 Bipolar disorder, unspecified (principal); E66.9 Obesity, unspecified; Z68.28 Body mass index [BMI] 28.0-28.9, adult; Z87.891 Personal history of nicotine dependence; Z91.014 Allergy to mammalian meats; Z81.8 Family history of other mental and behavioral disorders; S09.8XXA Other specified injuries of head, initial encounter; W18.09XA Striking against other object with subsequent fall, initial encounter; Y92.232 Corridor of hospital as the place of occurrence of the external cause
CPT/HCPCS: 36415; 70450; 70486; 72125; 80053; 80306; 80307; 84703; 85025; 96372; 97150; 97165; 99285; J1200; J1630; J2060; J9999